=== PATIENT | male | born 1960 | race Caucasian/White ===

== ENCOUNTER → 2020-04-05 | Outpatient (CLI) | payer SELFPAY ==
[~2020-04-05] MED LIST: CPR500T PO
== END ==
LOC: LAB 10:59
PROVIDERS: ATTEND Nurse Practitioner
DX: L03.031 Cellulitis of right toe (principal)
CPT/HCPCS: 87040

== ENCOUNTER → 2021-03-05 | Outpatient (CLI) | payer MEDICARE, MEDICAID | LOC: CARD 14:30 | PROVIDERS: ATTEND Internal Medicine Cardiovascular Disease | DX: I51.7 Cardiomegaly (principal); I34.0 Nonrheumatic mitral (valve) insufficiency | CPT/HCPCS: 93306 ==

== ENCOUNTER → 2021-03-07 | Outpatient (CLI) | payer MEDICARE, MEDICAID ==
[~2021-03-07] VITALS: Ht 183 cm; Wt 80.0 kg
[~2021-03-07] MED LIST changes: +CATHETER FLUSH 10 ML SYR IV PRN; +REGADENOSON 0.4 MG/5 ML SYR (LEXISCAN) IV ONE
[2021-03-07 09:17] VITALS: BP 154/71
--- NOTE | 2021-03-07 12:08 | NUCLEAR STRESS TEST ---
REGADENOSON NUCLEAR STRESS Date of procedure: 03/07/2021. Primary care provider: [facility] Admitting physician: Erick Woody Jr., MD. INDICATION: Abnormal electrocardiogram. BASELINE ELECTROCARDIOGRAM: Sinus rhythm with possible old septal myocardial infarction and anterior T wave changes, consider ischemia. STRESS TEST PROCEDURE: This was initially intended to be a treadmill nuclear stress test but the patient could not attain his target heart rate. This was t hen changed over to a pharmacologic nuclear stress test. The patient was administered 0.4 mg of intravenous Regadenoson. The resting heart rate was 60 bpm and the peak heart rate was 71 bpm. The resting blood pressure was 158/76 mmHg and the minimum blood pressure was 138/70 mmHg. This represents a normal heart rate and a normal blood pressure response to Regadenoson. The test was stopped due to the protocol. There was no chest discomfort during the test. There were no arrhythmias during the test. There were no significant stress induced electrocardiogram changes. NUCLEAR PROCEDURE: The patient was administered 10.8 mCi of intravenous technetium 99m Tetrofosmin at rest for the rest images. The patient was subsequently administered 30.8 mCi of intravenous technetium 99m Tetrofosmin at peak stress for the stress images. Following an appropriate wait after each injection, imaging was obtained. The images were subsequently processed and reformatted in the usual views. Gated imaging was obtained. The image quality was adequate with a mild degree of gastrointestinal attenuation artifact. CT attenuation correction was used as a adjunct to standard imaging. Both the corrected and uncorrected images were reviewed for interpretation. NUCLEAR RESULTS: There was a large, severe intensity, mid to distal anterior, apical and septal defect with no evidence of inducible ischemia. The left ventricle was dilated with an end-diastolic volume of 181 mL and an end-systolic volume of 106 mL. There was no evidence of transient ischemic dilatation. The TID ratio was 1.08. There was mid to distal anterior and apical hypokinesis with a calculated ejection fraction of 41%. IMPRESSION: 1. Normal heart rate and blood pressure response to regadenoson. 2. There was no chest discomfort, arrhythmias, or electrocardiogram changes during the test. 3. The left ventricle was dilated. 4. There was a large, severe intensity, mid to distal anterior, apical and septal defect with no evidence of inducible ischemia. 5. There was mid to distal anterior and apical hypokinesis with a calculated ejection fraction of 41%. 6. This is an abnormal result representing an overall high risk for possible future ischemic events due to the combination of the large extent of the perfusion defect coupled with the low ejection fraction. On the other hand, there is no evidence of ischemia on this study. Certain portions of this document may have been dictated utilizing voice recognition technology. Inherent to this technology, typographical and grammatical errors may exist. As much as I am diligent to identify and correct these mistakes, some errors may remain in the document. ERICK WOODY JR, MD Mar 07, 2021 12:08
== END ==
LOC: CARD 08:15
PROVIDERS: ATTEND Internal Medicine Cardiovascular Disease
DX: R94.31 Abnormal electrocardiogram [ECG] [EKG] (principal)
CPT/HCPCS: 78452; 93017; A9502

== ENCOUNTER → 2021-03-18 | Outpatient (CLI) | payer MEDICARE, MEDICAID ==
[~2021-03-18] MED LIST changes: +AMLO-251 PO; +ASPI-999 PO; +ATOR40TA70 PO; +CALC-250 PO; +CALC0.253 PO; +CALC667T5 PO; +CARV25TA PO; -CATHETER FLUSH 10 ML SYR IV PRN; +CLON1PAT34 TD; +CYAN100015 SL; +ESOM20TA PO; +FURO80TA3 PO; +HYDR100T27 PO; +ISOS60TA63 PO; -REGADENOSON 0.4 MG/5 ML SYR (LEXISCAN) IV ONE; +[UNRECOGNIZED DRUG - CODE] PO
[2021-03-18 08:16] LABS: EOSINOPHILS # (AUTO) 0.2 10^3/uL (0.0-0.3); EOSINOPHILS % (AUTO) 4 % (0-10); HEMATOCRIT 26 % (40-54); MEAN CORPUSCULAR VOLUME 91 fL (80-99); MONOCYTES # (AUTO) 0.4 10^3/uL (0.0-1.0)
[2021-03-18 08:18] LABS: BASOPHILS % (AUTO) 0 % (0-10); HEMOGLOBIN 9.3 g/dL (13.3-17.7); LYMPHOCYTES # (AUTO) 0.7 10^3/uL (1.0-4.0); LYMPHOCYTES % (AUTO) 14 % (12-44); MEAN CORPUSCULAR HEMOGLOBIN 32 pg (25-34); MEAN CORPUSCULAR HGB CONC 35 g/dL (32-36); MONOCYTES % (AUTO) 8 % (0-12); NEUTROPHILS # (AUTO) 3.7 10^3/uL (1.8-7.8); NEUTROPHILS % (AUTO) 74 % (42-75); PLATELET COUNT 86 10^3/uL (130-400)
[2021-03-18 08:40] LABS: CALCIUM 9.9 MG/DL (8.5-10.1); CREATININE SERUM 8.1 MG/DL (0.60-1.30); POTASSIUM 3.9 MMOL/L (3.6-5.0)
== END ==
LOC: LAB
PROVIDERS: ATTEND Internal Medicine Cardiovascular Disease
DX: R94.39 Abnormal result of other cardiovascular function study (principal)
CPT/HCPCS: 36415; 80048; 85025; 85610

== ENCOUNTER 2021-03-21 10:00 | Day surgery (SDC) | payer MEDICARE, MEDICAID ==
[~2021-03-21] VITALS: Ht 182.9 cm; Wt 78.9 kg
[2021-03-21] VITALS (24 sets, daily range): BP systolic 115–156; BP diastolic 51–81
--- OUTSIDE RECORDS SUMMARY | 2021-03-21 08:01 | XMS REPORT | Clinical Summary ---
Author Author [facility] Organization [facility] Address Unknown Phone Unavailable Care Team Providers Care Nursing Home Assistant Administrator Name Role Phone PCP Unavailable Allergies Not on File Medications Not on file Active Problems Not on file Social History Date Tobacco Use Types Packs/Day Years Used Never Assessed Sex Assigned at Date Recorded Not on file Last Filed Vital Signs Not on file Plan of Treatment Health Maintenance Due Date Last Done Comments Hepatitis C Screen 1960 Medicare Annual Wellness 1960 Td/Tdap# 1960 COVID-19 Vaccine (1) 1967 Colorectal Screening via 2012 Colonoscopy Zoster Vaccine# (1 of 2) 2012 Influenza Vaccine (#1) 2021 Pneumococcal Vaccine: Aged Out No longer eligib le based on patient's age to Pediatrics (0 to 5 Years) complete this topic and At-Risk Patients (6 to 64 Years) Results Not on filefrom Last 3 Months Insurance Type Payer Benefit Subscriber ID Effective Phone Address Plan / Dates Group Medicare MEDICARE MEDICARE [id number] 2020-P [phone] [employer] PART A B resent ATTN CLAIMS DEPT [address] [place] [address] Indemnity [employer] [id number] 2020- [address] [place] [address] MEDICAID MANAGED CARE [facility] [id number] 2020-P [address] COMM[place]ITY resent [id number] [place] [address]
--- NOTE | 2021-03-21 09:47 | Pre-Op Note & Conscious Sedat ---
Pre-Operative Progress Note H&P Reviewed The H&P was reviewed, patient examined and no changes noted. Date H&P Reviewed: Mar 21, 2021 Time H&P Reviewed: 09:47 Pre-Op Diagnosis: Abnormal nuclear stress test. Conscious Sedation Pre-Proced ASA Score 3 For ASA 3 and 4: Consider anesthesia and medical clearance. Also, for patients with a history of failed moderate sedation consider anesthesia. Airway Lungs Heart ASA score ASA 1: a normal healthy patient ASA 2: a patient with a mild systemic disease (mid diabetes, controlled hypertension, obesity ASA 3: a patient with a severe systemic disease that limits activity (angina, COPD, prior Myocardial infarction) ASA 4: a patient with an incapacitating disease that is a constant threat to life (CHF, renal failure) ASA 5: a moribund patient not expected to survive 24 hrs. (ruptured aneurysm) ASA 6: a declared brain- patient whose organs are being harvested. For emergent operations, add the letter E after the classification Mallampati Classification Grade 2 Sedation Plan Analgesia, Amnesia, Plan communicated to team members, Discussed options with patient/fam, Discussed risks with patient/fam The patient is an appropriate candidate to undergo the planned procedure, sedation, and anesthesia. The patient immediately re-assessed prior to indication. BERNABE PIKE JR, MD Mar 21, 2021 09:47
[~2021-03-21 10:00] MED LIST changes: -ASPI-999 PO; +ASPIRIN 81 MG CHEW (CHILDREN'S ASA) PO ONE; +CATHETER FLUSH 10 ML SYR IV PRN; +HEParin (CATH LAB) 2,000 ML IV ONE; +HEParin 1000 UNIT/ML (10ML VIAL) FOR BOLUS ONE; -ISOS60TA63 PO; +LIDOCAINE 1% INJ 20 ML 20 ML VIAL ONE; +MIDAZOLAM 5 MG/5 ML (VERSED) VIAL ONE; +NITRO DRIP 25000 MCG/D5W 250 ML IV ONE; +NS IV 1000 ML 1,000 ML IV ONE; +NS IV 1000 ML 1,000 ML ONE; +VERAPAMIL 5 MG/2 ML (CALAN) VIAL IV ONE; +diphenhydrAMINE 50 MG/ML INJ (BENADRYL) ONE; +fentaNYL INJ 100 MCG/2 ML AMP ONE; +methylPREDNISolone 125 MG (Solu-MEDROL) VIAL ONE
[2021-03-21] MEDS ORDERED: ONDANSETRON 4 MG/2 ML (SDV) Z0FRAN ONE (10:38)
[2021-03-21] MEDS ORDERED: PATIENT MAY USE OWN MEDS, ALL PO SCH (10:45)
[2021-03-21] MEDS ORDERED: NS IV 1000 ML 1,000 ML IV SCH (10:45)
[2021-03-21] MEDS ORDERED: ISOS60TA63 PO (10:47)
--- NOTE | 2021-03-21 11:04 | Cardiac Cath Report ---
CARDIAC CATHETERIZATION DATE OF PROCEDURE: 03/21/2021 INDICATION: Abnormal nuclear stress test and cardiomyopathy. HISTORY: The patient is a 61 year old male with no previously known history of coronary artery disease. I saw him in the office due to progressive dyspnea on exertion. I had him undergo a nuclear stress test on 03/07/2021 that showed a large fixed mid to distal anterior, apical and septal defect with no ischemia. The ejection fraction was 41%. This is considered a high risk result. As such, he is now referred for further evaluation with a cardiac catheterization. PROCEDURES PERFORMED: 1. Left heart catheterization with hemodynamic measurements. 2. Diagnostic [place] coronary angiography. PROCEDURE DESCRIPTION: After informed consent and in the fasting state, left heart catheterization was performed through the right radial artery utilizing a 6 Montserratian system by percutaneous approach. Standard 5 Montserratian Eric catheters were utilized for the diagnostic portion of the procedure. All catheters were exchanged over a guidewire. Following the procedure, a vascular band was applied to the radial artery access site and the sheath was removed with good hemostasis. RESULTS: HEMODYNAMICS: The aortic pressure was 142/64 mmHg. The left ventricular pressure was 148/0 mmHg with a left ventricular end-diastolic pressure of 25 mmHg. There was no significant pressure gradient upon pullback across the aortic valve. CORONARY ANGIOGRAPHY: Left main coronary artery: Short and free of significant disease. Left anterior descending coronary artery: There was a 30% stenosis in the proximal segment. There was a 99% stenosis in the mid segment with TANIA-2 flow. The distal portion of the vessel was diffusely diseased up to 70% stenotic but the apical portion of the vessel was relatively spared. There were 3 small diagonal branches which were diffusely diseased. These were approximately 2 mm vessels. Left circumflex coronary artery: There was a 30% stenosis proximally. There was a large bifurcating first obtuse marginal branch which contained a 70% stenosis proximally followed by an 80% stenosis in the midportion of the vessel just distal to to the bifurcation. There was TANIA-3 flow. Right coronary artery: Dominant and there were 3 sequential 70% stenoses in the proximal, mid and distal segments with TANIA-2 flow. The posterior descending artery and posterolateral branches were small and diffusely diseased but without significant focal critical stenoses. IMPRESSION: 1. Systemic hypertension with elevated left ventricular end-diastolic pressure. 2. Severe [place] three-vessel coronary artery disease as outlined above. The left main coronary artery is spared. 3. The patient has mild left ventricular systolic dysfunction with a calculated ejection fraction 41% by his nuclear stress test performed on 03/07/2021. However, he also had an echocardiogram on 03/05/2021 that showed an estimated ejection fraction of 55-60% with mild mitral regurgitation. 4. The patient will be referred to a cardiovascular surgeon for consideration of coronary artery bypass surgery. Certain portions of this document may have been dictated utilizing voice recognition technology. Inherent to this technology, typographical and grammatical errors may exist. As much as I am diligent to identify and correct these mistakes, some errors may remain in the document. BERNABE PIKE JR, MD Mar 21, 2021 11:04
[2021-03-21] MEDS ORDERED: ASPI-999 PO (13:38)
== END 2021-03-21 17:50 ==
LOC: CATH 10:00 → CSD 11:05 → CATH 17:50
PROVIDERS: ATTEND Internal Medicine Cardiovascular Disease
DX: I42.9 Cardiomyopathy, unspecified (principal); I25.10 Atherosclerotic heart disease of native coronary artery without angina pectoris; E78.5 Hyperlipidemia, unspecified; E11.40 Type 2 diabetes mellitus with diabetic neuropathy, unspecified; D64.9 Anemia, unspecified; I13.11 Hypertensive heart and chronic kidney disease without heart failure, with stage 5 chronic kidney disease, or end stage renal disease; E11.22 Type 2 diabetes mellitus with diabetic chronic kidney disease; N18.5 Chronic kidney disease, stage 5; Z99.2 Dependence on renal dialysis; Z79.899 Other long term (current) drug therapy
CPT/HCPCS: 93458; C1894

== ENCOUNTER 2021-03-27 07:54 | Emergency (ER) | payer MEDICARE, MEDICAID ==
[~2021-03-27] VITALS: Ht 182 cm; Wt 90.7 kg
[~2021-03-27 07:54] MED LIST changes: -DOXY100C5 PO; -ONDA4TAB11 SL
--- OUTSIDE RECORDS SUMMARY | 2021-03-27 07:59 | XMS REPORT | Clinical Summary ---
Author Author [facility] Organization [facility] Address Unknown Phone Unavailable Care Team Providers Care Checker Loader Name Role Phone PCP Unavailable Allergies Not [...] Plan / Dates Group Medicare MEDICARE MEDICARE [id number] 2020-P [phone] [employer] PART A B resent ATTN CLAIMS DEPT [address] [place] [address] Indemnity [employer] [id number] 2020- [address] [facility] [place] [address] MEDICAID MANAGED CARE [facility] [id number] 2020-P [address] COMM[place]ITY resent [id number] [place] [address]
[2021-03-27 08:05] VITALS: BP 162/80
--- NOTE | 2021-03-27 09:22 | ED EENT ---
History of Present Illness General Chief Complaint: Dental Problems/Pain Stated Complaint: ABCESS TOOTH,N/V, LOSS OF APPETITE Nursing Triage Note: ARRIVED VIA AMB TO ROOM 07 WITH COMPLAINTS OF DENTAL ABSCESS THAT IS DRAINING. STATES HIS BLOOD SUGAR HAS BEEN HIGH. Source: patient Exam Limitations: no limitations History of Present Illness Date Seen by Provider: Mar 27, 2021 Time Seen by Provider: 09:13 Initial Comments This 61-year-old gentleman presents to the emergency room with complaints of dental decay on a left lower posterior molar with drainage of purulent foul taste vague fluid. This is causing loss of appetite and vomiting. He denies any fever. He reports blood sugars have been escalating and he was started on insulin therapy on Thursday. The dental abscess has been draining for about 2 w eeks. Patient is on peritoneal dialysis. He feels like he has been diuresing recently due to his high blood sugars. He has not yet seen a dentist for this problem. Allergies and Home Medications Allergies Coded Allergies: No Known Drug Allergies (Unverified , 12/11/11) Patient Home Medication List Home Medication List Reviewed: Yes Amlodipine Besylate (Amlodipine Besylate) 10 Mg Tablet, 10 MG PO DAILY, (Reported) Entered as Reported by: CARITO HARTMANN on 03/21/21928 Aspirin (Aspirin) 81 Mg Tab.chew, 81 MG PO DAILY Prescribed by: BERNABE PIKE JR, MD on 03/21/21 133 Atorvastatin Calcium (Atorvastatin Calcium) 40 Mg Tablet, 40 MG PO DAILY, (Reported) Entered as Reported by: CARITO HARTMANN on 03/21/21928 Calcitriol (Calcitriol) 0.25 Mcg Capsule, 0.25 MCG PO HS, (Reported) Entered as Reported by: CARITO HARTMANN on 03/21/21928 Calcium Acetate (Calcium Acetate) 667 Mg Tablet, 1,334 MG PO TID, (Reported) Entered as Reported by: CARITO HARTMANN on 03/21/21928 Carvedilol (Carvedilol) 25 Mg Tablet, 25 MG PO BID, (Reported) Entered as Reported by: CARITO HARTMANN on 03/21/21928 Cholecalciferol (Vitamin D3) (Vitamin D3) 125 Mcg Tablet, 125 MCG PO DAILY, (Reported) Entered as Reported by: CARITO HARTMANN on 03/21/21928 Clonidine (Clonidine TTS 2 Patch) 1 Each Patch.tdwk, 1 PATCH TD SUN, (Reported) Entered as Reported by: CARITO HARTMANN on 03/21/21928 Cyanocobalamin (Vitamin B-12) (Vitamin B-12) 1,000 Mcg Tab.subl, 1,000 MCG SL DAILY, (Reported) Entered as Reported by: CARITO HARTMANN on 03/21/21928 Doxycycline Hyclate (Doxycycline Hyclate) 100 Mg Capsule, 100 MG PO BID Prescribed by: CHOLO EDGAR on 03/27/21925 Esomeprazole Magnesium (Nexium 24Hr) 20 Mg Tablet.dr, 20 MG PO DAILY, (Reported) Entered as Reported by: CARITO HARTMANN on 03/21/21928 Folic Acid/Vitamin B Comp W-C (Dialyvite 800 Tablet) 0.8 Mg Tablet, 0.8 MG PO HS, (Reported) Entered as Reported by: CARITO HARTMANN on 03/21/21928 Furosemide (Furosemide) 80 Mg Tablet, 80 MG PO DAILY, (Reported) Entered as Reported by: CARITO HARTMANN on 03/21/21928 Hydralazine HCl (Hydralazine HCl) 100 Mg Tablet, 100 MG PO BID, (Reported) Entered as Reported by: CARITO HARTMANN on 03/21/21928 Isosorbide Mononitrate (Isosorbide Mononitrate ER) 60 Mg Tab, 60 MG PO DAILY Prescribed by: BERNABE PIKE JR, MD on 03/21/21 1047 Ondansetron (Ondansetron Odt) 4 Mg Tab.rapdis, 4 MG SL Q4H PRN for NAUS EA/VOMITING Prescribed by: CHOLO EDGAR on 03/27/21925 Discontinued Medications Ciprofloxacin (Cipro) 500 Mg Tablet, 1 TAB PO BID Discontinued Reason: No Longer Taking Prescribed by: ARMANI CANTOR on 12/11/11 1612 Review of Systems Review of Systems Constitutional: no symptoms reported Eyes: No Symptoms Reported Ears: No Symptoms Reported Nose: no symptoms reported Mouth: see HPI Throat: no symptoms reported Respiratory: no symptoms reported Cardiovascular: no symptoms reported Gastrointestinal: see HPI Musculoskeletal: no symptoms reported Skin: no symptoms reported Neurological: No Symptoms Reported Hematologic/Lymphatic: No Symptoms Reported Immunological/Allergic: no symptoms reported Past Qobqkpu-Kfhuqy-Huyurh Hx Patient Social History Smoking Status: Never a Smoker Substance use?: No Alcohol Use?: No Past Medical History Surgeries: Yes (Peritoneal dialysis drain) Respiratory: No Cardiac: Yes Coronary Artery Disease, Heart Attack, Heart Murmur, Hypertension Neurological: No Genitourinary: Yes Renal Failure, Dialysis (Peritoneal) Gastrointestinal: Yes Gastroesophageal Reflux Musculoskeletal: No Endocrine: Yes Diabetes, Insulin dep HEENT: Yes (Very poor dentition) Cancer: No Skin Psychosocial: No Integumentary: No Physical Exam Vital Signs Vital Signs - First Documented 03/27/21 08:05 Temp 37.0 Pulse 53 Resp 16 B/P (MAP) 162/80 (107) Pulse Ox 97 O2 Delivery Room Air Height, Weight, BMI Height: '" Weight: lbs. oz. kg; 27.00 BMI Method:Stated General Appearance: WD/WN, no apparent distress Eyes: bilateral eye normal inspection, bilateral eye PERRL, bilateral eye EOMI Ears: bilateral ear auricle normal, bilateral ear canal normal, bilateral ear TM normal Nose: normal inspection Mouth/Throat: dental tenderness, other (Poor dentition with some missing teeth and a deep caries at the medial aspect of the left lower posterior molar. No overt abscess identified) Neck: non-tender, normal inspection; No lymphadenopathy (R), No lymphadenopathy (L) Cardiovascular: regular rate, rhythm, no edema, no murmur Respiratory: lungs clear, normal breath sounds, no respiratory distress Neurologic/Psychiatric: alert, normal mood/affect, oriented x 3 Skin: normal color, warm/dry Progress/Results/Core Measures Results/Orders Lab Results Laboratory Tests Test 03/27/21 08:09 Range/Units Glucometer 330 H 70-110 MG/DL My Orders Orders - CHOLO GALLAGHER MD Ondansetron Oral Dissolve Tab (Zofran (03/27/21 09:30) Vital Signs/I&O Blood Pressure Mean: 107 FSBG Bedside Testing Finger Stick Blood Glucose: 330 Blood Glucose Action Taken: RN AND PHYSICIAN NOTIFIED Progress Progress Note : Progress Note Patient was treated with Zofran. Prescriptions for antibiotics and Zofran were provided. Doxycycline was selected due to no need for renal dosing. Departure Impression Primary Impression: Dental abscess Additional Impressions: Hyperglycemia Nausea & vomiting Qualified Codes: R11.2 - Nausea with vomiting, unspecified Disposition: 01 HOME, SELF-CARE Condition: Stable Departure-Patient Inst. Decision time for Depature: 09:23 [facility]errals: [facility] Primary Care Physician LULU ARIZMENDI APRN (Family) Primary Care Physician Patient Instructions: Tooth Abscess ED Add. Discharge Instructions: Start your antibiotics and complete the entire course. You must see a dentist as soon as possible as you will likely need extraction or other intervention to resolve your abscess. Monitor your blood sugars closely and work with your insulin prescriber to adjust dosing as necessary. You may use Tylenol (acetaminophen) up to 1000 mg every 6 hours as needed for pain. Use the Zofran as prescribed for nausea and vomiting. Call with questions or concerns. Return to the ER if you have worsening symptoms. All discharge instructions reviewed with patient and/or family. Voiced understanding. Scripts Ondansetron (Ondansetron Odt) 4 Mg Tab.rapdis 4 MG SL Q4H PRN for NAUSEA/VOMITING, #10 TAB Prov: CHOLO GALLAGHER MD 03/27/21 Doxycycline Hyclate (Doxycycline Hyclate) 100 Mg Capsule 100 MG PO BID, #20 CAP Prov: CHOLO GALLAGHER MD 03/27/21 Copy Copies To 1: SIMÓN BALLESTEROS JOSHUA T MD Mar 27, 2021 09:22
[2021-03-27] MEDS ORDERED: DOXY100C5 PO (09:26)
[2021-03-27] MEDS ORDERED: ONDA4TAB11 SL (09:26)
[2021-03-27] MEDS ORDERED: ONDANSETRON 4 MG (ZOFRAN) ORAL DISSOLVE TAB PO ONE (09:30)
== END 2021-03-27 09:40 | disposition home or self-care (01) ==
LOC: EDUNIT# 07:54 → ER 07:56
DX: K04.7 Periapical abscess without sinus (principal); E11.65 Type 2 diabetes mellitus with hyperglycemia; R11.2 Nausea with vomiting, unspecified; I25.2 Old myocardial infarction; I10 Essential (primary) hypertension; K21.9 Gastro-esophageal reflux disease without esophagitis; I25.10 Atherosclerotic heart disease of native coronary artery without angina pectoris; Z79.899 Other long term (current) drug therapy; Z79.82 Long term (current) use of aspirin
CPT/HCPCS: 82947

== ENCOUNTER → 2021-03-27 | Outpatient (CLI) | payer MEDICARE, MEDICAID ==
[~2021-03-27] MED LIST changes: +ASPI-999 PO; -ASPIRIN 81 MG CHEW (CHILDREN'S ASA) PO ONE; -CATHETER FLUSH 10 ML SYR IV PRN; +DOXY100C5 PO; -HEParin (CATH LAB) 2,000 ML IV ONE; -HEParin 1000 UNIT/ML (10ML VIAL) FOR BOLUS ONE; +ISOS60TA63 PO; -LIDOCAINE 1% INJ 20 ML 20 ML VIAL ONE; -MIDAZOLAM 5 MG/5 ML (VERSED) VIAL ONE; -NITRO DRIP 25000 MCG/D5W 250 ML IV ONE; -NS IV 1000 ML 1,000 ML IV ONE; -NS IV 1000 ML 1,000 ML ONE; +ONDA4TAB11 SL; -VERAPAMIL 5 MG/2 ML (CALAN) VIAL IV ONE; -diphenhydrAMINE 50 MG/ML INJ (BENADRYL) ONE; -fentaNYL INJ 100 MCG/2 ML AMP ONE; -methylPREDNISolone 125 MG (Solu-MEDROL) VIAL ONE
--- NOTE | 2021-03-28 15:28 | Cardiac Procedure Note ---
Cardiology Procedures Date of Procedure THALLIUM VIABILITY STUDY Date of procedure: 03/27/2021-03/28/2021 Indication: Coronary artery disease with angina pectoris. PROCEDURE: On day 1, the patient was administered 3.1 mCi of thallium-201 for baseline imaging. On day 2, the patient was administered 1.1 mCi of thallium-201 for redistribution imaging. Following appropriate weight after each injection, imaging was obtained. The images were subsequently processed and reformatted in the usual views. RESULTS: At rest, there was a large mid to distal anterior, septal and apical perfusion defect. The remaining segments had normal perfusion. During recent distribution imaging all segments except for the distal anterior and apical segments had good perfusion. The only segments with no viability appear to be the distal anterior and apical segments. IMPRESSION: 1. This is a thallium viability study. 2. All myocardial segments other than the distal anterior and apical segments have good viability. Certain portions of this document may have been dictated utilizing voice recognition technology. Inherent to this technology, typographical and grammatical errors may exist. As much as I am diligent to identify and correct these mistakes, some errors may remain in the document. BERNABE PIKE JR, MD Mar 28, 2021 15:28
== END ==
LOC: CARD 10:00
PROVIDERS: ATTEND Internal Medicine Cardiovascular Disease
DX: I25.119 Atherosclerotic heart disease of native coronary artery with unspecified angina pectoris (principal)
CPT/HCPCS: 78452; 93017; A9505

== ENCOUNTER → 2021-08-29 | Outpatient (CLI) | payer MEDICARE, MEDICAID ==
[~2021-08-29] VITALS: Ht 182.8 cm; Wt 86.0 kg
[~2021-08-29] MED LIST changes: +DOXY100C5 PO; +ONDA4TAB11 SL
== END | disposition home or self-care (01) ==
LOC: PREOP 06:58
PROVIDERS: ATTEND Specialist
DX: Z01.818 Encounter for other preprocedural examination (principal)

== ENCOUNTER 2021-09-06 07:36 | Day surgery (SDC) | payer MEDICARE, MEDICAID ==
[~2021-09-06] VITALS: Ht 182.8 cm; Wt 86.0 kg
[2021-09-06] MEDS: TETRACAINE 0.5% OPHTH SOLN 4 ML BTL (SINGLE DOSE ONLY) OU PRN ×4 (07:58→08:19)
[2021-09-06] MEDS ORDERED: LIDOCAINE PF 1% 2 ML VIAL IR PRN (08:00)
[2021-09-06] MEDS ORDERED: TIMOLOL MALEATE 0.5% 5 ML (TIMOPTIC) BTL OU PRN (08:00)
[2021-09-06] MEDS ORDERED: POVIDONE (BETADINE) OPHTH SOLN 5% 30 ML OP ONE (08:00)
[2021-09-06] MEDS ORDERED: MOXIFLOXACIN OPHTH SOLN 5 MG/ML 0.3 ML SYRINGE OP ONE (08:00)
[2021-09-06] MEDS: PHENYLEPHRINE 10% OPHTH (NEO-SYN) 5 ML BTL OU SCH ×3 (08:08→08:19)
[2021-09-06] MEDS: TROPICAMIDE 1% OPH SOLN (MYDRIACYL) 15 ML BTL OP SCH ×3 (08:09→08:19)
[2021-09-06 08:14] VITALS: BP 68/46
[2021-09-06] MEDS ORDERED: DEXTROSE 50% 50 ML (IMS) SYR ONE (08:36)
[2021-09-06] MEDS ORDERED: DEXTROSE 50% 50 ML (IMS) SYR IV ONE (08:45)
[2021-09-06] MEDS ORDERED: ONDANSETRON 4 MG/2 ML (SDV) Z0FRAN ONE (09:06)
[2021-09-06] MEDS ORDERED: MIDAZOLAM 2 MG/2 ML (VERSED) VIAL ONE (09:06)
--- NOTE | 2021-09-06 09:39 | Ophthalmologist Pre-Op Note ---
Pre-Operative Progress Note H&P Reviewed The H&P was reviewed, patient examined and no changes noted. Date H&P Reviewed: Sep 06, 2021 Time H&P Reviewed: 10:22 Pre-Op Dx Cataract, Right Eye DWAIN PEDRAZA MD Sep 06, 2021 09:39
--- NOTE | 2021-09-06 09:40 | Ophthalmology Operative Report ---
Cataract removal/placement IOL PREOPERATIVE DIAGNOSIS: Cataract Right Eye POSTOPERATIVE DIAGNOSIS: Cataract Right Eye PROCEDURE: Cataract removal and placement of posterior chamber implant, right eye SURGEON: Dharmesh Pedraza ANESTHESIA: Topical with sedation COMPLICATIONS: None ESTIMATED BLOOD LOSS: Minimal DESCRIPTION OF PROCEDURE: After proper informed consent was obtained, the patient, a 61 male, was taken to the Operating Room and the right eye was anesthetized with tetracaine. The right eye was then prepped and draped in the usual manner. A wire lid speculum was placed. A paracentesis was made at the left hand position. Preservative free lidocaine was injected into the anterior chamber followed by viscoelastic. A clear corneal incision was made in the temporal position. A capsulorrhexis was preformed and the central nuclear and cortical material were removed. The posterior capsule was polished and Artemio 18.5 [id number] IOL was placed into the capsular bag. The residual viscoelastic was aspirated and balanced saline solution was injected into the anterior chamber. Moxifloxacin was injected into the anterior chamber. The wound was checked and found to be water tight. The patient tolerated the procedure well without complications. DHARMESH PEDRAZA MD Sep 06, 2021 09:40
[2021-09-06 09:58] VITALS: BP 102/65
[2021-09-06] MEDS ORDERED: acetaZOLAMIDE ER 500 MG CAP (DIAMOX SEQUELS) PO ONE (10:15)
== END 2021-09-06 10:00 | disposition home or self-care (01) ==
LOC: SDC 07:36
PROVIDERS: ATTEND Specialist
DX: E11.36 Type 2 diabetes mellitus with diabetic cataract (principal); H25.9 Unspecified age-related cataract; Z79.82 Long term (current) use of aspirin
CPT/HCPCS: 66984; 82947; V2632

== ENCOUNTER 2021-09-20 07:29 | Day surgery (SDC) | payer MEDICARE, MEDICAID ==
--- NOTE | 2021-09-16 07:17 | Anesthesia-General Post-Op ---
MAC Significant Intra-Op Events Notes late entry 6-3-22 at 0845 Post Op Complications Complications None Follow Up Care/Instructions Patient Instructions None needed. Anesthesiology Discharge Order Discharge Order Patient is doing well, no complaints, stable vital signs, no apparent adverse anesthesia problems. No complications reported per nursing. LUCERO CHOWDHURY CRNA Sep 16, 2021 07:17
[~2021-09-20] VITALS: Ht 182.9 cm; Wt 86.0 kg
[2021-09-20] MEDS ORDERED: MOXIFLOXACIN OPHTH SOLN 5 MG/ML 0.3 ML SYRINGE OP ONE (07:30)
[2021-09-20] MEDS ORDERED: LIDOCAINE PF 1% 2 ML VIAL IR PRN (07:30)
[2021-09-20] MEDS ORDERED: TIMOLOL MALEATE 0.5% 5 ML (TIMOPTIC) BTL OU PRN (07:30)
[2021-09-20] MEDS ORDERED: POVIDONE (BETADINE) OPHTH SOLN 5% 30 ML OP ONE (07:30)
[2021-09-20] MEDS: TETRACAINE 0.5% OPHTH SOLN 4 ML BTL (SINGLE DOSE ONLY) OU PRN ×4 (07:42→08:05)
[2021-09-20 07:45] VITALS: BP 121/71
[2021-09-20] MEDS: PHENYLEPHRINE 10% OPHTH (NEO-SYN) 5 ML BTL OU SCH ×3 (07:50→08:06)
[2021-09-20] MEDS: TROPICAMIDE 1% OPH SOLN (MYDRIACYL) 15 ML BTL OP SCH ×3 (07:50→08:06)
--- NOTE | 2021-09-20 08:18 | Ophthalmologist Pre-Op Note ---
Pre-Operative Progress Note H&P Reviewed The H&P was reviewed, patient examined and no changes noted. Date H&P Reviewed: Sep 20, 2021 Time H&P Reviewed: 08:17 Pre-Op Dx Cataract, Left Eye DWAIN PEDRAZA MD Sep 20, 2021 08:18
[2021-09-20] MEDS ORDERED: MIDAZOLAM 2 MG/2 ML (VERSED) VIAL ONE (08:27)
[2021-09-20] MEDS ORDERED: acetaZOLAMIDE ER 500 MG CAP (DIAMOX SEQUELS) PO ONE (08:30)
[2021-09-20] MEDS ORDERED: LIDOCAINE PF 2% 5 ML (XYLOCAINE) VIAL ONE (08:39)
--- NOTE | 2021-09-20 08:45 | Ophthalmology Operative Report ---
Cataract removal/placement IOL PREOPERATIVE DIAGNOSIS: Cataract Left Eye POSTOPERATIVE DIAGNOSIS: Cataract Left Eye PROCEDURE: Cataract removal and placement of posterior chamber implant, left eye SURGEON: Dharmesh Pedraza ANESTHESIA: Topical with sedation COMPLICATIONS: None ESTIMATED BLOOD LOSS: Minimal DESCRIPTION OF PROCEDURE: After proper informed consent was obtained, the patient, a 61 male, was taken to the Operating Room and the left eye was anesthetized with tetracaine. The left eye was then prepped and draped in the usual manner. A wire lid speculum was placed. A paracentesis was made at the left hand position. Preservative free lidocaine was injected into the anterior chamber followed by viscoelastic. A clear corneal incision was made in the temporal position. A capsulorrhexis was preformed and the central nuclear and cortical material were removed. The posterior capsule was polished and an Artemio 18.0 AU00T0 was placed into the capsular bag. The residual viscoelastic was aspirated and balanced saline solution was injected into the anterior chamber. Moxifloxacin was injected into the anterior chamber. The wound was checked and found to be water tight. The patient tolerated the procedure well without complications. DHARMESH PEDRAZA MD Sep 20, 2021 08:45
[2021-09-20 08:53] VITALS: BP 130/66
--- NOTE | 2021-09-20 12:51 | Anesthesia-General Post-Op ---
MAC Patient Condition Mental Status/LOC: Same as Preop Cardiovascular: Satisfactory Nausea/Vomiting: Absent Respiratory: Satisfactory Pain: Controlled Complications: Absent Post Op Complications Complications None Follow Up Care/Instructions Patient Instructions None needed. Anesthesiology Discharge Order Discharge Order Patient is doing well, no complaints, stable vital signs, no apparent adverse anesthesia problems. No complications reported per nursing. CLARICE BELTRE CRNA Sep 20, 2021 12:51
== END 2021-09-20 08:54 | disposition home or self-care (01) ==
LOC: SDC 07:29
PROVIDERS: ATTEND Specialist
DX: E11.36 Type 2 diabetes mellitus with diabetic cataract (principal); H25.9 Unspecified age-related cataract; Z79.82 Long term (current) use of aspirin
CPT/HCPCS: 66984; 82947; V2632

== ENCOUNTER → 2021-09-23 | Outpatient (CLI) | payer MEDICARE, MEDICAID ==
--- NOTE | 2021-09-23 14:41 | Diagnostic Imaging Report ---
INDICATION: COUGH COMPARISON: None FINDINGS: Frontal and lateral views of the chest demonstrate normal heart size and pulmonary vascularity. The lungs are clear. There are no signs of infiltrate, pleural effusions or pneumothoraces. The visualized osseous structures show no acute abnormalities. IMPRESSION: 1. No acute process. No signs of infiltrates, effusions or pneumothoraces. Dictated by: Dictated on workstation # [id number]
== END ==
LOC: RAD 13:56
PROVIDERS: ATTEND Internal Medicine Nephrology
DX: R05.9 Cough, unspecified (principal)
CPT/HCPCS: 71046

== ENCOUNTER → 2021-11-12 | Outpatient (CLI) | payer MEDICARE, MEDICAID ==
[~2021-11-12] MED LIST changes: +RT-ALBUTEROL SULF 2.5 MG/3 ML PRE-MIX VIAL INH ONE
== END ==
LOC: RT 10:45
PROVIDERS: ATTEND Nurse Practitioner Family
DX: R05.3 Chronic cough (principal)
CPT/HCPCS: 94060; 94729

== ENCOUNTER → 2022-03-13 | Outpatient (CLI) | payer OTHER, MEDICAID ==
[~2022-03-13] MED LIST changes: -RT-ALBUTEROL SULF 2.5 MG/3 ML PRE-MIX VIAL INH ONE
--- NOTE | 2022-03-13 13:54 | Diagnostic Imaging Report ---
PROCEDURE: CT abdomen with and without contrast. TECHNIQUE: Multiple contiguous axial CT images of the abdomen were obtained prior to and after intravenous administration of iodinated contrast. Auto Exposure Controls were utilized during the CT exam to meet ALARA standards for radiation dose reduction. INDICATION: Cirrhosis and ascites. No prior studies are available for comparison. FINDINGS: The lung bases are clear. Liver demonstrates a nodular contour consistent with cirrhosis. No discrete liver mass is identified. Spleen is mildly enlarged at 14.2 cm. Gallbladder is unremarkable. There is no biliary ductal dilatation. The pancreas is unremarkable. No adrenal mass is identified. Renal vascular calcifications are noted. There appears to be a small cyst arising from the left kidney. Aorta is nonaneurysmal. No central retroperitoneal or mesenteric lymphadenopathy is seen. Bowel loops are normal in caliber. There is trace perihepatic and perisplenic ascites. IMPRESSION: 1. Features consistent with cirrhosis. There is very mild splenomegaly and very mild upper abdominal ascites. No discrete liver mass is detected. Dictated by: Dictated on workstation # [id number]
== END ==
LOC: RAD 12:43
DX: K74.60 Unspecified cirrhosis of liver (principal); R16.1 Splenomegaly, not elsewhere classified
CPT/HCPCS: 74170

== ENCOUNTER 2022-04-15 11:59 | Emergency (ER) | payer OTHER, MEDICAID ==
[~2022-04-15] VITALS: Ht 182.8 cm; Wt 86.2 kg
--- NOTE | 2022-04-15 14:20 | ED Fall/Injury ---
General Chief Complaint: Trauma-Non Activation Stated Complaint: FALL | LOWER LT SIDE PAIN Nursing Triage Note: PT TO TRIAGE WITH COMPLAINT OF FALL. STATES TWO DAYS AGO HE WAS PUTTING ON HIS SOCKS AND FELL ONTO TO LEFT SIDE. STATES PAIN HAS WORSENED AND IS HAVING DIFFICULTY WALKING. PT IS DIALYSIS PT. Source: patient (PT IS SOMEWHAT LIMITED HISTORIAN), other (SON GIVES PAST MEDICAL HISTORY) History of Present Illness Date Seen by Provider: Apr 15, 2022 Time Seen by Provider: 14:00 Initial Comments PT ARRIVES VIA POV FROM HOME WITH SON PT STATES THAT HE FELL AT HOME ON Thursday04/13/22 HE STATES HE WAS STANDING UP AND TAKING OFF HIS SOCKS AND LOST HIS BALANCE AND FELL ONTO [place] FLOOR HE STATES HE DID HIT HIS HEAD ON THE DOOR FRAME WHEN HE FELL, BUT DENIES LOSS OF CONSCIOUSNESS THE BACK OF HIS HEAD IS SORE C/O LEFT HIP PAIN AND LOWER BACK PAIN DENIES NECK PAIN DENIES NEW PARESTHESIAS OR MOTOR DEFICITS--HAS PERIPHERAL NEUROPATHY IN LOWER LEGS AND FEET AND IN HANDS DENIES LOSS OF BOWEL OR BLADDER FUNCTION NO CHEST PAIN OR SHORTNESS OF BREATH NO ABDOMINAL PAIN NO NAUSEA/VOMITING NO DIZZINESS NO VISION CHANGES THIS WAS NOT WITNESSED BY ANYONE. PT IS ON ASPIRIN AND PLAVIX. HE HAS NOT TAKEN ANYTHING FOR PAIN AT ANY TIME HE HAS NOT SOUGHT CARE UNTIL TODAY PT HAS ESRD ON PERITONEAL DIALYSIS. HE IS INSULIN DEPENDENT DIABETIC HE HAS HISTORY OF CAD WITH 3 OR 4 STENTS. 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 HE ALSO HAS AN APPOINTMENT THERE TO BE EVALUATED FOR A KIDNEY TRANSPLANT, WHILE HE IS THERE. PCP: [facility] [place] C[facility]IOLOGY: DR. ZAZUETA AT [place]. Allergies and Home Medications Allergies Coded Allergies: No Known Drug Allergies (Unverified , 12/11/11) Patient Home Medication List Amlodipine Besylate (Amlodipine Besylate) 10 Mg Tablet, 10 MG PO DAILY, (Reported) Entered as Reported by: CARITO HARTMANN on 03/21/21 09 Aspirin (Aspirin) 81 Mg Tab.chew, 81 MG PO DAILY Prescribed by: BERNABE PIKE JR, MD on 03/21/21 1338 Atorvastatin Calcium (Atorvastatin Calcium) 40 Mg Tablet, 40 MG PO DAILY, (Reported) Entered as Reported by: CARITO HARTMANN on 03/21/21928 Calcitriol (Calcitriol) 0.25 Mcg Capsule, 0.25 MCG PO HS, (Reported) Entered as Reported by: CARITO HARTMANN on 03/21/21928 Calcium Acetate (Calcium Acetate) 667 Mg Tablet, 1,334 MG PO TID, (Reported) Entered as Reported by: CARITO HARTMANN on 03/21/21928 Carvedilol (Carvedilol) 25 Mg Tablet, 25 MG PO BID, (Reported) Entered as Reported by: CARITO HARTMANN on 03/21/21928 Cholecalciferol (Vitamin D3) (Vitamin D3) 125 Mcg Tablet, 125 MCG PO DAILY, (Reported) Entered as Reported by: CARITO HARTMANN on 03/21/21928 Clonidine (Clonidine TTS 2 Patch) 1 Each Patch.tdwk, 1 PATCH TD SUN, (Reported) Entered as Reported by: CARITO HARTMANN on 03/21/21928 Cyanocobalamin (Vitamin B-12) (Vitamin B-12) 1,000 Mcg Tab.subl, 1,000 MCG SL DAILY, (Reported) Entered as Reported by: CARITO HARTMANN on 03/21/21928 Doxycycline Hyclate (Doxycycline Hyclate) 100 Mg Capsule, 100 MG PO BID Prescribed by: CHOLO EDGAR on 03/27/21925 Esomeprazole Magnesium (Nexium 24Hr) 20 Mg Tablet.dr, 20 MG PO DAILY, (Reported) Entered as Reported by: CARITO HARTMANN on 03/21/21928 Folic Acid/Vitamin B Comp W-C (Dialyvite 800 Tablet) 0.8 Mg Tablet, 0.8 MG PO HS, (Reported) Entered as Reported by: CARITO HARTMANN on 03/21/21928 Furosemide (Furosemide) 80 Mg Tablet, 80 MG PO DAILY, (Reported) Entered as Reported by: CARITO HARTMANN on 03/21/21928 Hydralazine HCl (Hydralazine HCl) 100 Mg Tablet, 100 MG PO BID, (Reported) Entered as Reported by: CARITO HARTMANN on 03/21/21928 Isosorbide Mononitrate (Isosorbide Mononitrate ER) 60 Mg Tab, 60 MG PO DAILY Prescribed by: BERNABE PIKE JR, MD on 03/21/21 1047 Ondansetron (Ondansetron Odt) 4 Mg Tab.rapdis, 4 MG SL Q4H PRN for NAUSEA/VOMITING Prescribed by: CHOLO EDGAR on 03/27/21 0926 Review of Systems Review of Systems Constitutional: no symptoms reported Ears, Nose, Mouth, Throat: no symptoms reported Respiratory: no symptoms reported Cardiovascular: no symptoms reported Gastrointestinal: no symptoms reported Musculoskeletal: see HPI Skin: no symptoms reported Psychiatric/Neurological: See HPI; Denies Headache; Pre-Existing Deficit (PERIPHERAL NEUROPATHY) Past Fdaqidz-Egusqv-Xjdppj Hx Patient Social History Tobacco Use?: Yes Tobacco type used: Cigarettes Smoking Status: Former Smoker Use of E-Cig and/or Vaping dev: No Substance use?: No Alcohol Use?: No Pt feels they are or have been: No Past Medical History Surgeries: Yes (PERITONEAL DIALYSIS PORT IN ABDOMEN) Cardiac, Coronary Stent, Dialysis Respiratory: No Cardiac: Yes Coronary Artery Disease, Heart Attack, Heart Murmur, High Cholesterol, Hypertension Neurological: Yes Neuropathy Genitourinary: Yes Renal Failure, Dialysis Gastrointestinal: Yes Gastroesophageal Reflux Musculoskeletal: No Endocrine: Yes Diabetes, Insulin dep HEENT: No Cancer: Yes Skin Did You Recieve Any Treatments: Yes What Type of Treatment Did You: Surgical Intervention Psychosocial: No Integumentary: No Blood Disorders: No Family Medical History SOCIAL HISTORY: -SMOKED UNTIL HE WAS IN HIS 40'S -DENIES ETOH -DENIES DRUG USE PAST SURGICAL HISTORY: -PERITONIAL DIALYSIS PORT IN ABDOMEN -CARDIAC CATHS WITH STENTS X 3-4 Physical Exam Vital Signs Vital Signs - First Documented 04/15/22 12:10 Temp 36.8 Pulse 72 Resp 16 B/P (MAP) 130/68 (88) Pulse Ox 98 O2 Delivery Room Air Capillary Refill : Less Than 3 Seconds Height, Weight, BMI Height: '" Weight: lbs. oz. kg; 25.00 BMI Method:Stated General Appearance: WD/WN, no apparent distress HEENT: PERRL/EOMI, other (TENDERNESS TO BACK OF HEAD, BUT NO EXTERNAL EVIDENCE OF TRAUMA) Neck: non-tender, full range of motion, supple Cardiovascular: regular rate, rhythm, no murmur Respiratory: chest non-tender, normal breath sounds, no respiratory distress, no accessory muscle use Gastrointestinal: non tender, soft, other (PERITONEAL DIALYSIS PORT IN PLACE) Back: no CVA tenderness, other (LOWER LUMBAR TENDERNESS, LEFT POSTERIOR ILIAC CREST AND LEFT BUTTOCK TENDERNESS. ) Extremities: normal capillary refill, other (LEFT HIP TENDERNESS. NO SHORTENING OR ROTATION. ) Neurologic/Psychiatric: cellar pumper II-XII nml as tested, alert, normal mood/affect, oriented x 3, other (DECREASED SENSATION TO BOTH FEET AND LOWER LEGS. --NORMAL, PER PT ) Skin: warm/dry, pallor (SALLOW. ) Progress/Results/Core Measures Results/Orders My Orders Orders - NHUNG LI DO Ct Head/Cervical Spine Wo (04/15/22 14:15) Ct Thoracic/Lumbar Spine Wo (04/15/22 14:15) Chest 1 View, Ap/Pa Only (04/15/22 14:15) Pelvis With Left Hip 2-3 Views (04/15/22 14:15) Ct Pelvis Wo (04/15/22 14:15) Vital Signs/I&O 04/15/22 12:10 Temp 36.8 Pulse 72 Resp 16 B/P (MAP) 130/68 (88) Pulse Ox 98 O2 Delivery Room Air Blood Pressure Mean: 88 Departure Impression Primary Impression: Unwitnessed fall Additional Impressions: Fall from standing Minor head injury Contusion of left hip LOW BACK STRAIN AND CONTUSION ESRD on peritoneal dialysis Disposition: 01 HOME, SELF-CARE Condition: Stable Departure-Patient Inst. Decision time for Depature: 15:15 Referrals: [facility] (PCP) Primary Care Physician LULU ARIZMENDI APRN (Family) Primary Care Physician Patient Instructions: Back Muscle Strain (DC), Contusion (DC), Hip Pain (DC), Preventing Falls ED Add. Discharge Instructions: CONTINUE YOUR REGULAR MEDICATIONS PRESCRIBED FOLLOW UP WITH YOUR DR IN 3-4 DAYS IF NO BETTER, RETURN TO ER IF YOUR SYMPTOMS WORSEN All discharge instructions reviewed with patient and/or family. Voiced understanding. Scripts Hydrocodone/Acetaminophen (Hydrocodone-Acetamin 5-325 mg) 5 Mg-325 Mg Tablet 1 EACH PO Q4-6 HOURS PRN for PAIN, #20 TAB Prov: NHUNG LI DO 04/15/22 NHUNG LI DO Apr 15, 2022 14:20
--- NOTE | 2022-04-15 14:55 | Diagnostic Imaging Report ---
PROCEDURE: CT head and CT cervical spine without contrast. TECHNIQUE: Multiple contiguous axial images were obtained through the brain and cervical spine without the use of intravenous contrast. Sagittal and coronal reformations through the cervical spine were then performed. Auto Exposure Controls were utilized during the CT exam to meet ALARA standards for radiation dose reduction. INDICATION: Trauma. Fall. Head and neck pain. COMPARISON: None. FINDINGS: CT head: No large acute territorial ischemia, mass, or hemorrhage. No midline shift or mass effect. The ventricles, cortical sulci, and basilar cisterns are patent and unremarkable. The calvarium is intact. The visualized paranasal sinuses are clear. CT cervical spine: No acute fracture or dislocation is seen in the cervical spine. No focal osseous lesions. Vertebral body heights are well-maintained. The craniocervical junction is well-maintained. Moderate degenerative changes are seen in the cervical spine with disc osteophyte complexes and uncovertebral arthropathy. Soft tissues of the neck are unremarkable. IMPRESSION: 1. No hemorrhage or focal intra-axial mass. No CT evidence of large acute territorial ischemia. 2. No acute fracture or dislocation in the cervical spine. Dictated by: Dictated on workstation # [id number]
--- NOTE | 2022-04-15 15:05 | Diagnostic Imaging Report ---
PROCEDURE: CT thoracic and lumbar spine without contrast. TECHNIQUE: Multiple contiguous axial images were obtained through the thoracic and lumbar spine without the use of intravenous contrast. Sagittal and coronal reformations were then performed. All CT scans use one or more of the following dose optimizing techniques: automated exposure control, MA and/or KvP adjustment based on a patient size and exam type, or iterative reconstruction. INDICATION: Fall. Mid and lower back pain. COMPARISON: None. FINDINGS: No acute fracture or dislocation is seen in the thoracic and lumbar spine. There is straightening of the thoracic spine. No suspicious focal osseous lesions. Degenerative changes are seen in the thoracic and lumbar spine with endplate sclerosis, disc osteophyte complexes, and facet hypertrophy. No evidence of acute spinal canal stenosis. No high-density material is seen within the spinal canal. The paraspinal soft tissues are unremarkable. Dependent opacities are seen in the lung bases. IMPRESSION: 1. No acute fracture or dislocation in the thoracic and lumbar spine. Dictated by: Dictated on workstation # [id number]
--- NOTE | 2022-04-15 15:07 | Diagnostic Imaging Report ---
CHEST 1 VIEW, AP/PA ONLY Indication: Trauma, fall Comparison: CT thoracic spine performed same day Findings: No focal airspace disease in the visualized lungs. No pleural effusion or pneumothorax. Marked enlargement of cardiac silhouette is due to cardiomegaly as seen on CT thoracic spine. Impression: 1. No acute cardiopulmonary process by portable radiography. 2. Marked cardiomegaly. Dictated by: Dictated on workstation # [id number]
--- NOTE | 2022-04-15 15:09 | Diagnostic Imaging Report ---
EXAMINATION: PELVIS WITH LEFT HIP 2-3 VIEWS. INDICATION: Pelvic trauma. COMPARISON: CT pelvis performed concurrently. TECHNIQUE: AP view of the pelvis. FINDINGS: No displaced fracture in the pelvis or proximal femurs. No hip dislocation. No diastasis of the SI joints or symphysis pubis. Dialysis catheter is noted within the lower abdomen. IMPRESSION: No displaced fracture or traumatic diastasis in the pelvis. Dictated by: Dictated on workstation # [id number]
--- NOTE | 2022-04-15 15:11 | Diagnostic Imaging Report ---
PROCEDURE: CT pelvis without contrast. TECHNIQUE: Multiple contiguous axial images were obtained through the pelvis without the use of intravenous contrast. Sagittal and coronal reformations were performed. Auto Exposure Controls were utilized during the CT exam to meet ALARA standards for radiation dose reduction. INDICATION: Patient fell two days ago with some left-sided pelvic pain. FINDINGS: There are arthritic changes to the bilateral hips. No femoral head collapse. Femoral heads, necks, trochanters, and visualized subtrochanteric shafts are nonacute. There are degenerative changes along the acetabular margins of the joints bilaterally but this was symmetric. No bony avulsion. Symphysis and SI joints are degenerated but unseparated. Superior and inferior pubic rami are intact. Sacrococcygeal curvature and segments appeared intact. There is lower lumbar spondylosis. There is a peritoneal catheter present. No loculated pelvic fluid collection. There is a peripherally calcified right groin mass, inseparable from the proximal SFA which is atherosclerotic. Its presumed a very large fusiform aneurysm but chronic peripherally partly calcified pseudoaneurysm could not be excluded. I have no priors to confirm its long-term stability but calcifications presumed to reflect its chronicity. This could be further interrogated with color Doppler and has a diameter of 4 cm. IMPRESSION: 1. No pelvic fracture, intra or extraperitoneal hemorrhage. 2. 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 No evidence for its rupture. Dictated by: Dictated on workstation # [id number]
[2022-04-15] MEDS ORDERED: ACHD5005 PO (15:21)
[2022-04-15 15:37] VITALS: BP 118/73
== END 2022-04-15 15:39 | disposition home or self-care (01) ==
LOC: EDUNIT# 11:59 → ER 12:01
DX: S09.90XA Unspecified injury of head, initial encounter (principal); S39.012A Strain of muscle, fascia and tendon of lower back, initial encounter; S70.02XA Contusion of left hip, initial encounter; I12.0 Hypertensive chronic kidney disease with stage 5 chronic kidney disease or end stage renal disease; E11.22 Type 2 diabetes mellitus with diabetic chronic kidney disease; N18.6 End stage renal disease; Z99.2 Dependence on renal dialysis; Z79.4 Long term (current) use of insulin; Z87.891 Personal history of nicotine dependence; Z79.01 Long term (current) use of anticoagulants; Z79.82 Long term (current) use of aspirin; W18.30XA Fall on same level, unspecified, initial encounter; Y92.009 Unspecified place in unspecified non-institutional (private) residence as the place of occurrence of the external cause
CPT/HCPCS: 70450; 71045; 72125; 72128; 72131; 72192

== ENCOUNTER 2022-06-05 14:22 | Emergency (ER) | payer MEDICARE, MEDICAID ==
[~2022-06-05] VITALS: Ht 182 cm; Wt 88.0 kg
[~2022-06-05 14:22] MED LIST changes: +ACHD5005 PO
[2022-06-05 14:35] LABS: HEMATOCRIT 31 % (40-54); MEAN CORPUSCULAR VOLUME 95 fL (80-99); MEAN PLATELET VOLUME 10.3 fL (9.0-12.2); NEUTROPHILS # (AUTO) 4.7 10^3/uL (1.8-7.8)
[2022-06-05 14:37] LABS: BASOPHILS # (AUTO) 0.1 10^3/uL (0.0-0.1); BASOPHILS % (AUTO) 1 % (0-10); EOSINOPHILS # (AUTO) 0.3 10^3/uL (0.0-0.3); EOSINOPHILS % (AUTO) 4 % (0-10); HEMOGLOBIN 10.4 g/dL (13.3-17.7); LYMPHOCYTES % (AUTO) 16 % (12-44); MEAN CORPUSCULAR HEMOGLOBIN 33 pg (25-34); MEAN CORPUSCULAR HGB CONC 34 g/dL (32-36); MONOCYTES # (AUTO) 0.5 10^3/uL (0.0-1.0); MONOCYTES % (AUTO) 8 % (0-12); NEUTROPHILS % (AUTO) 72 % (42-75); PLATELET COUNT 135 10^3/uL (130-400); WHITE BLOOD COUNT 6.6 10^3/uL (4.3-11.0)
[2022-06-05 14:41] LABS: SMEAR SCAN COMMENT YES
[2022-06-05 14:47] LABS: ALBUMIN 3.5 GM/DL (3.2-4.5); POTASSIUM 2.7 MMOL/L (3.6-5.0)
[2022-06-05 14:49] LABS: CALCIUM 9.2 MG/DL (8.5-10.1)
[2022-06-05 14:50] LABS: TOTAL PROTEIN 6.2 GM/DL (6.4-8.2)
[2022-06-05 14:52] LABS: BILIRUBIN,TOTAL 0.6 MG/DL (0.1-1.0)
[2022-06-05 14:54] LABS: CREATININE SERUM 11.08 MG/DL (0.60-1.30)
[2022-06-05 14:56] LABS: MAGNESIUM 1.5 MG/DL (1.6-2.4)
[2022-06-05] MEDS ORDERED: NS IV 1000 ML 1,000 ML IV ONE (15:15)
[2022-06-05] MEDS ORDERED: MAGNESIUM 1 GM/100 ML IVPB 100 ML IV ONE ×2 (15:15)
[2022-06-05] MEDS ORDERED: POTASSIUM CL 10MEQ/50ML IVPB 50 ML IV ONE ×3 (15:15→18:15)
--- NOTE | 2022-06-05 15:16 | ED Cardiac General ---
History of Present Illness General Chief Complaint: Dizziness/Syncope Stated Complaint: LOW BLOOD PRESSURE | BRADYCARDIA Nursing Triage Note: pt sent via EMS from [facility] after pt's BP and HR were found to be low, 60/40s and 30s. pt reports feeling dizzy at that time. EMS reports VSS en route and upon arrival, VS remain stable. pt appears pale and still reports "slight dizziness" but otherwise has no complaints. a&ox4. Source: patient, family, EMS Exam Limitations: no limitations (CHOLO GALLAGHER MD) History of Present Illness Date Seen by Provider: Jun 05, 2022 Time Seen by Provider: 14:23 Initial Comments This 62-year-old gentleman presents to the emergency room via EMS from [facility] where he was being seen for a follow-up visit. He was noted to have a blood pressure in the 60/48 range and a heart rate in the 30s. He was feeling somewhat dizzy but overall was not feeling sick. He reports feeling like he may need a blood transfusion. He has had severe anemia in the past requiring transfusion. He has end-stage renal disease and does peritoneal dialysis daily. He makes a small amount of urine 2 or 3 times daily. He is presently being evaluated for a transplant candidate at [facility]. His network engineer administrator is Dr. Song Tom. His primary care is at [facility]. Fingerstick blood sugar was 226. (CHOLO GALLAGHER MD) Allergies and Home Medications Allergies Coded Allergies: No Known Drug Allergies (Unverified , 12/11/11) Patient Home Medication List Home Medication List Reviewed: Yes (CHOLO GALLAGHER MD) Amlodipine Besylate (Amlodipine Besylate) 10 Mg Tablet, 10 MG PO DAILY, (Reported) Entered as Reported by: CARITO HARTMANN on 03/21/21928 Aspirin (Aspirin) 81 Mg Tab.chew, 81 MG PO DAILY Prescribed by: BERNABE PIKE JR, MD on 03/21/21 1338 Atorvastatin Calcium (Atorvastatin Calcium) 40 Mg Tablet, 40 MG PO DAILY, (Reported) Entered as Reported by: CARITO HARTMANN on 03/21/21928 Calcitriol (Calcitriol) 0.25 Mcg Capsule, 0.25 MCG PO HS, (Reported) Entered as Reported by: CARITO HARTMANN on 03/21/21928 Calcium Acetate (Calcium Acetate) 667 Mg Tablet, 1,334 MG PO TID, (Reported) Entered as Reported by: CARITO HARTMANN on 03/21/21928 Carvedilol (Carvedilol) 25 Mg Tablet, 25 MG PO BID, (Reported) Entered as Reported by: CARITO HARTMANN on 03/21/21928 Cholecalciferol (Vitamin D3) (Vitamin D3) 125 Mcg Tablet, 125 MCG PO DAILY, (Reported) Entered as Reported by: CARITO HARTMANN on 03/21/21928 Clonidine (Clonidine TTS 2 Patch) 1 Each Patch.tdwk, 1 PATCH TD SUN, (Reported) Entered as Reported by: CARITO HARTMANN on 03/21/21928 Cyanocobalamin (Vitamin B-12) (Vitamin B-12) 1,000 Mcg Tab.subl, 1,000 MCG SL DAILY, (Reported) Entered as Reported by: CARITO HARTMANN on 03/21/21928 Doxycycline Hyclate (Doxycycline Hyclate) 100 Mg Capsule, 100 MG PO BID Prescribed by: CHOLO EDGAR on 03/27/21925 Esomeprazole Magnesium (Nexium 24Hr) 20 Mg Tablet.dr, 20 MG PO DAILY, (Reported) Entered as Reported by: CARITO HARTMANN on 03/21/21928 Folic Acid/Vitamin B Comp W-C (Dialyvite 800 Tablet) 0.8 Mg Tablet, 0.8 MG PO HS, (Reported) Entered as Reported by: CARITO HARTMANN on 03/21/21928 Furosemide (Furosemide) 80 Mg Tablet, 80 MG PO DAILY, (Reported) Entered as Reported by: CARITO HARTMANN on 03/21/21928 Hydralazine HCl (Hydralazine HCl) 100 Mg Tablet, 100 MG PO BID, (Reported) Entered as Reported by: CARITO HARTMANN on 03/21/21928 Hydrocodone/Acetaminophen (Hydrocodone-Acetamin 5-325 mg) 5 Mg-325 Mg Tablet, 1 EACH PO Q4-6 HOURS PRN for PAIN Prescribed by: NHUNG LI on 04/15/22 152 Isosorbide Mononitrate (Isosorbide Mononitrate ER) 60 Mg Tab, 60 MG PO DAILY Prescribed by: BERNABE PIKE JR, MD on 03/21/21 1047 Ondansetron (Ondansetron Odt) 4 Mg Tab.rapdis, 4 MG SL Q4H PRN for NAUSEA/VOMITING Prescribed by: CHOLO EDGAR on 03/27/21 0926 Review of Systems Review of Systems Constitutional: see HPI, other (Fatigue) EENTM: No Symptoms Reported Respiratory: No Symptoms Reported Cardiovascular: See HPI, Other (Frequent PVCs on telemetry) Gastrointestinal: Vomiting (Daily, chronic) Genitourinary: See HPI Musculoskeletal: no symptoms reported Skin: no symptoms reported Psychiatric/Neurological: No Symptoms Reported Endocrine: See HPI Hematologic/Lymphatic: No Symptoms Reported (CHOLO GALLAGHER MD) Past Ifsiecl-Rusxyl-Acesny Hx Patient Social History Tobacco Use?: No Substance use?: No Alcohol Use?: No Pt feels they are or have been: No (CHOLO GALLAGHER MD) Immunizations Up To Date Influenza Vaccine Up-to-Date: Yes; Up-to-Date (CHOLO GALLAGHER MD) Past Medical History Surgeries: Yes (PERITONEAL DIALYSIS PORT IN ABDOMEN) Cardiac, Coronary Stent, Dialysis, Vascular Surgery (Pseudoaneurysm repair) Respiratory: No Cardiac: Yes Coronary Artery Disease, Heart Attack, Heart Murmur, High Cholesterol, Hypertension Neurological: Yes Neuropathy Genitourinary: Yes Renal Failure, Dialysis Gastrointestinal: Yes Gastroesophageal Reflux Musculoskeletal: No Endocrine: Yes Diabetes, Insulin dep HEENT: No Cancer: Yes Skin Did You Recieve Any Treatments: Yes What Type of Treatment Did You: Surgical Intervention Psychosocial: No Integumentary: No Blood Disorders: No (CHOLO GALLAGHER MD) Family Medical History SOCIAL HISTORY: -SMOKED UNTIL HE WAS IN HIS 40'S -DENIES ETOH -DENIES DRUG USE PAST SURGICAL HISTORY: -PERITONIAL DIALYSIS PORT IN ABDOMEN -CARDIAC CATHS WITH STENTS X 3-4 (CHOLO GALLAGHER MD) Physical Exam Vital Signs Vital Signs - First Documented 06/05/22 14:23 Temp 36.6 Pulse 68 Resp 25 B/P (MAP) 96/62 (73) Pulse Ox 99 O2 Delivery Room Air (AKASH JONES MD) Vital Signs Capillary Refill : Less Than 3 Seconds (CHOLO GALLAGHER MD) Height, Weight, BMI Height: '" Weight: lbs. oz. kg; 26.00 BMI Method:Stated General Appearance: No Apparent Distress, WD/WN HEENT: PERRL/EOMI, Normal ENT Inspection Neck: Normal Inspection Respiratory: Lungs Clear, Normal Breath Sounds, No Accessory Muscle Use Cardiovascular: No Edema, No Murmur, Other (Irregular rhythm with frequent PVCs and frequently in bigeminy) Gastrointestinal: Non Tender, Soft, Other (Peritoneal dialysis port clean, dry, intact, and without evidence of inflammation or purulent drainage) Extremity: Normal Inspection, No Pedal Edema Neurologic/Psychiatric: Alert, Oriented x3, No Motor/Sensory Deficits, Normal Mood/Affect Skin: Normal Color, Warm/Dry (CHLOO GALLAGHER MD) Progress/Results/Core Measures Results/Orders Lab Results Laboratory Tests Test 06/05/22 14:28 06/05/22 14:31 Range/Units White Blood Count 6.6 4.3-11.0 10^3/uL Red Blood Count 3.20 L 4.30-5.52 10^6/uL Hemoglobin 10.4 L 13.3-17.7 g/dL Hematocrit 31 L 40-54 % Mean Corpuscular Volume 95 80-99 fL Mean Corpuscular Hemoglobin 33 25-34 pg Mean Corpuscular Hemoglobin Concent 34 32-36 g/dL Red Cell Distribution Width 13.9 10.0-14.5 % Platelet Count 135 130-400 10^3/uL Mean Platelet Volume 10.3 9.0-12.2 fL Immature Granulocyte % (Auto) 0 % Neutrophils (%) (Auto) 72 42-75 % Lymphocytes (%) (Auto) 16 12-44 % Monocytes (%) (Auto) 8 0-12 % Eosinophils (%) (Auto) 4 0-10 % Basophils (%) (Auto) 1 0-10 % Neutrophils # (Auto) 4.7 1.8-7.8 10^3/uL Lymphocytes # (Auto) 1.0 1.0-4.0 10^3/uL Monocytes # (Auto) 0.5 0.0-1.0 10^3/uL Eosinophils # (Auto) 0.3 0.0-0.3 10^3/uL Basophils # (Auto) 0.1 0.0-0.1 10^3/uL Immature Granulocyte # (Auto) 0.0 0.0-0.1 10^3/uL Percent Immature Platelet Fraction 4.2 0.0-7.6 % Sodium Level 138 135-145 MMOL/L Potassium Level 2.7 L 3.6-5.0 MMOL/L Chloride Level 94 L 98-107 MMOL/L Carbon Dioxide Level 26 21-32 MMOL/L Anion Gap 18 H 5-14 MMOL/L Blood Urea Nitrogen 43 H 7-18 MG/DL Creatinine 11.08 H 0.60-1.30 MG/DL Estimat Glomerular Filtration Rate 5 BUN/Creatinine Ratio 4 Glucose Level 252 H 70-105 MG/DL Calcium Level 9.2 8.5-10.1 MG/DL Corrected Calcium 9.6 8.5-10.1 MG/DL Magnesium Level 1.5 L 1.6-2.4 MG/DL Total Bilirubin 0.6 0.1-1.0 MG/DL Aspartate Amino Transf (AST/SGOT) 9 5-34 U/L Alanine Aminotransferase (ALT/SGPT) 9 0-55 U/L Alkaline Phosphatase 85 40-136 U/L C-Reactive Protein High Sensitivity 0.25 0.00-0.50 MG/DL Total Protein 6.2 L 6.4-8.2 GM/DL Albumin 3.5 3.2-4.5 GM/DL Smear Scan YES Glucometer 226 H 70-110 MG/DL (AKASH JONES MD) Medications Given in ED Current Medications Medications Dose Ordered Sig/Julian Route Start Time Stop Time Status Last Admin Dose Admin Magnesium Sulfate/ Dextrose 100 ml @ 100 mls/hr ONCE ONCE IV 06/05/22 15:15 06/05/22 16:14 DC 06/05/22 15:26 100 MLS/HR Magnesium Sulfate/ Dextrose 100 ml @ 100 mls/hr ONCE ONCE IV 06/05/22 15:15 06/05/22 16:14 DC 06/05/22 16:12 100 MLS/HR Potassium Chloride 50 ml @ 50 mls/hr ONCE ONCE IV 06/05/22 15:15 06/05/22 16:14 DC 06/05/22 15:26 50 MLS/HR Potassium Chloride 50 ml @ 50 mls/hr ONCE ONCE IV 3/2/23 15:15 06/05/22 16:14 DC 06/05/22 16:12 50 MLS/HR Potassium Chloride 50 ml @ 50 mls/hr ONCE ONCE IV 06/05/22 18:15 06/05/22 19:14 DC 06/05/22 18:14 50 MLS/HR Sodium Chloride 1,000 ml @ 100 mls/hr Q10H ONCE IV 06/05/22 15:15 06/06/22 01:14 06/05/22 15:26 100 MLS/HR (AKASH JONES MD) Vital Signs/I&O 06/05/22 14:23 Temp 36.6 Pulse 68 Resp 25 B/P (MAP) 96/62 (73) Pulse Ox 99 O2 Delivery Room Air (AKASH JONES MD) Blood Pressure Mean: 73 Progress Progress Note #1: Time: 17:05 Progress Note Patient was interviewed and examined shortly upon arrival. He was noted to have a soft blood pressure and bradycardia. Rhythm on the monitor and EKGs demonstrated bigeminy with bradycardia. Rates including PVCs is in the 60s. Palpable pulse rate is in the 30s. While resting in bed patient is asymptomatic. I discussed the case with Dr. Mike and reviewed labs with him. Patient has notable electrolyte abnormalities with a potassium of 2.7 and magnesium of 1.5. Correction of electrolytes was recommended to hopefully treat the PVCs and resolve the bigeminy. We are presently slowly infusing magnesium 2 g IV and potassium 20 mEq IV. We will continue to monitor at this time. Progress Note #2: Time: 18:10 Progress Note Patient has had some longer stretches of normal sinus rhythm but is currently in bigeminy after Magnesium 2 g IV and Potassium 20 mEq IV. I have ordered an additional Potassium 10 mEq IV dose and will transition care to Dr. Jones. (CHOLO GALLAGHER MD) Progress Note : Time: 19:32 Progress Note Patient here assumed at shift change with ongoing monitoring for bigeminy versus normal sinus. Patient was getting his third 10 mEq of IV potassium at shift change. Reevaluated at this time, his blood pressure is 130 systolic, heart rate between 60s and 70s 90% of the time appears normal sinus. He is completely asymptomatic. He verbalizes understanding of the plan of care, to touch base w ith his network engineer administrator and his french comber tomorrow morning. He states that he notices that he has some breathing issues mostly at night, can feel sometimes "extra beats". He has not talked to his french comber about this. He currently has no shortness of breath, no chest pain. No questions. He has received and total 30 mEq of IV potassium and 2 g of magnesium. I discussed return precautions with the patient. He verbalized understanding. All questions are sought and answered. (AKASH JONES MD) EKG #1: EKG Time: 14:45 Rate: 80 Rhythm: Ventricular bigeminy Comment Sinus rhythm with ventricular bigeminy. No ST elevation or depression. No axis deviation. EKG #2: EKG Time: 15:02 Rate: 85 Comment Sinus rhythm with ventricular bigeminy. No ST elevation or depression. No axis deviation. (CHOLO GALLAGHER MD) Departure Impression Primary Impression: Sinus bradycardia Additional Impressions: Bigeminy Hypokalemia Hypomagnesemia End stage renal failure on dialysis Disposition: 01 HOME, SELF-CARE Condition: Improved Departure-Patient Inst. Decision time for Depature: 19:34 (AKASH JONES MD) Referrals: LULU ARIZMENDI APRN (PCP) Primary Care Physician [facility] (Family) Primary Care Physician Patient Instructions: Palpitations, Hypokalemia (DC) Add. Discharge Instructions: Continue your daily medications as prescribed. Please contact both your heart doctor as well as your kidney doctor tomorrow to let them know that you were in the emergency room and that you had low potassium, low magnesium and an irregular heartbeat, specifically "Bigeminy". Your heart rhythm has improved with replacement of potassium and magnesium. Your blood pressure is much better. If you develop any weakness, chest pain, shortness of breath or passing out spells please come back to the emergency room for reevaluation. Copy Copies To 1: SIMÓN BALLESTEROS JOSHUA T MD Jun 05, 2022 15:16 AKASH JONES MD Jun 05, 2022 19:35
[2022-06-05 19:40] VITALS: BP 130/84
== END 2022-06-05 19:42 | disposition home or self-care (01) ==
LOC: EDUNIT# 14:22 → ER 14:23
DX: R00.1 Bradycardia, unspecified (principal); R00.8 Other abnormalities of heart beat; E87.6 Hypokalemia; E83.42 Hypomagnesemia; E11.22 Type 2 diabetes mellitus with diabetic chronic kidney disease; I13.11 Hypertensive heart and chronic kidney disease without heart failure, with stage 5 chronic kidney disease, or end stage renal disease; N18.6 End stage renal disease; Z99.2 Dependence on renal dialysis; Z79.4 Long term (current) use of insulin; Z87.891 Personal history of nicotine dependence
CPT/HCPCS: 36415; 80053; 82947; 83735; 85025; 86141; 93005; 93041

== ENCOUNTER 2022-07-17 09:51 | Emergency (ER) | payer MEDICARE, MEDICAID ==
[~2022-07-17] VITALS: Ht 182 cm; Wt 90.0 kg
[2022-07-17] MEDS ORDERED: fentaNYL INJ 100 MCG/2 ML AMP IVP STA (11:04)
--- NOTE | 2022-07-17 11:09 | ED General ---
General Chief Complaint: General Problems/Pain Stated Complaint: GOUT | SWELLING | Nursing Triage Note: PT TO RM 6 PER W/C PT HAVING GOUT FLARE UP, PT HAND,KNEES, ELBOWS SWELLING,WARMNESS, AND SEVERE PAIN. PT HAS RENAL FAILURE AND DOES HOME PERITONEAL DIALYSIS. PT STATES ALSO FEELS DEHYDRATED Source of Information: Patient Exam Limitations: No Limitations History of Present Illness Date Seen by Provider: Jul 17, 2022 Time Seen by Provider: 11:06 Initial Comments Patient is a 62-year-old male with a history of gout, chronic kidney disease, cirrhosis, coronary artery disease who presents to ED for bilateral elbow, bilateral wrist and right knee pain. This started last night. Pain is yair cribed as sharp and constant. Pain has increased today. States last time he had a gout flare was last year in his right knee. Also reports history of gout in his left foot a few years ago. Patient does do peritoneal dialysis daily. Currently on the waiting list for kidney transplant. Denies of any fever, diarrhea, chest pain, shortness of breath or cough. Did vomited once before arrival but states he does have a hiatal hernia which she does have intermittent vomiting. States he feels dehydrated. Denies fever, chills, body aches, redness of the joints. Patient main concern is decreased range of motion and pain. Allergies and Home Medications Allergies Coded Allergies: No Known Drug Allergies (Unverified , 12/11/11) Patient Home Medication List Home Medication List Reviewed: Yes Amlodipine Besylate (Amlodipine Besylate) 10 Mg Tablet, 10 MG PO DAILY, (Reported) Entered as Reported by: CARITO HARTMANN on 03/21/21928 Aspirin (Aspirin) 81 Mg Tab.chew, 81 MG PO DAILY Prescribed by: BERNABE PIKE JR, MD on 03/21/21 1338 Atorvastatin Calcium (Atorvastatin Calcium) 40 Mg Tablet, 40 MG PO DAILY, (Reported) Entered as Reported by: CARITO HARTMANN on 03/21/21928 Calcitriol (Calcitriol) 0.25 Mcg Capsule, 0.25 MCG PO HS, (Reported) Entered as Reported by: CARITO HARTMANN on 03/21/21928 Calcium Acetate (Calcium Acetate) 667 Mg Tablet, 1,334 MG PO TID, (Reported) Entered as Reported by: CARITO HARTMANN on 03/21/21928 Carvedilol (Carvedilol) 25 Mg Tablet, 25 MG PO BID, (Reported) Entered as Reported by: CARITO HARTMANN on 03/21/21928 Cholecalciferol (Vitamin D3) (Vitamin D3) 125 Mcg Tablet, 125 MCG PO DAILY, (Reported) Entered as Reported by: CARITO HARTMANN on 03/21/21928 Clonidine (Clonidine TTS 2 Patch) 1 Each Patch.tdwk, 1 PATCH TD SUN, (Reported) Entered as Reported by: CARITO HARTMANN on 03/21/21928 Cyanocobalamin (Vitamin B-12) (Vitamin B-12) 1,000 Mcg Tab.subl, 1,000 MCG SL DAILY, (Reported) Entered as Reported by: CARITO HARTMANN on 03/21/21928 Doxycycline Hyclate (Doxycycline Hyclate) 100 Mg Capsule, 100 MG PO BID Prescribed by: CHOLO EDGAR on 03/27/21925 Esomeprazole Magnesium (Nexium 24Hr) 20 Mg Tablet.dr, 20 MG PO DAILY, (Reported) Entered as Reported by: CARITO HARTMANN on 03/21/21928 Folic Acid/Vitamin B Comp W-C (Dialyvite 800 Tablet) 0.8 Mg Tablet, 0.8 MG PO HS, (Reported) Entered as Reported by: CARITO HARTMANN on 03/21/21928 Furosemide (Furosemide) 80 Mg Tablet, 80 MG PO DAILY, (Reported) Entered as Reported by: CARITO HARTMANN on 03/21/21928 Hydralazine HCl (Hydralazine HCl) 100 Mg Tablet, 100 MG PO BID, (Reported) Entered as Reported by: CARITO HARTMANN on 03/21/21928 Hydrocodone/Acetaminophen (Hydrocodone-Acetamin 5-325 mg) 5 Mg-325 Mg Tablet, 1 EACH PO Q4-6 HOURS PRN for PAIN Prescribed by: NHUNG LI on 04/15/22 1522 Hydrocodone/Acetaminophen (Hydrocodone-Acetamin 5-325 mg) 5 Mg-325 Mg Tablet, 1 TAB PO Q4H PRN for PAIN-MODERATE (5-7) Prescribed by: ALEC YOUSIF on 07/17/22 1230 Isosorbide Mononitrate (Isosorbide Mononitrate ER) 60 Mg Tab, 60 MG PO DAILY Prescribed by: BERNABE PIKE JR, MD on 03/21/21 1047 Ondansetron (Ondansetron Odt) 4 Mg Tab.rapdis, 4 MG SL Q4H PRN for NAUSEA/VOMITING Prescribed by: CHOLO EDGAR on 03/27/21 0926 Prednisone (Prednisone) 10 Mg Tab.ds.pk, 10 MG PO DAILY Prescribed by: ALEC YOUSIF on 07/17/22 1230 Review of Systems Review of Systems Constitutional: No chills, No diaphoresis, No malaise, No weakness Respiratory: No cough, No dyspnea on exertion Cardiovascular: No chest pain, No edema Gastrointestinal: No abdominal pain, No constipation, No diarrhea, No nausea, No vomiting Genitourinary: No decreased output, No discharge Musculoskeletal: No back pain; joint pain, joint swelling, muscle pain Skin: No change in color All Other Systems Reviewed Negative Unless Noted: Yes Past Ivnaisu-Vmprog-Plwhjg Hx Patient Social History Tobacco Use?: No Substance use?: No Alcohol Use?: No Pt feels they are or have been: No Immunizations Up To Date Influenza Vaccine Up-to-Date: Yes; Up-to-Date First/Initial COVID19 Vaccinat: YES Second COVID19 Vaccination Jonathan: YES Past Medical History Surgery/Hospitalization HX: DIABETIC, PERITONEAL DIALYSIS Surgeries: Yes (PERITONEAL DIALYSIS PORT IN ABDOMEN) Cardiac, Coronary Stent, Dialysis, Vascular Surgery Respiratory: No Cardiac: Yes Coronary Artery Disease, Heart Attack, Heart Murmur, High Cholesterol, Hypertension Neurological: Yes Neuropathy Genitourinary: Yes Renal Failure, Dialysis Gastrointestinal: Yes Gastroesophageal Reflux Musculoskeletal: No Endocrine: Yes Diabetes, Insulin dep HEENT: No Cancer: Yes Skin Did You Recieve Any Treatments: Yes What Type of Treatment Did You: Surgical Intervention Psychosocial: No Integumentary: No Blood Disorders: No Family Medical History SOCIAL HISTORY: -SMOKED UNTIL HE WAS IN HIS 40'S -DENIES ETOH -DENIES DRUG USE PAST SURGICAL HISTORY: -PERITONIAL DIALYSIS PORT IN ABDOMEN -CARDIAC CATHS WITH STENTS X 3-4 Physical Exam Vital Signs Vital Signs - First Documented 07/17/22 10:35 Temp 37.1 Pulse 74 Resp 15 B/P (MAP) 128/71 (90) Capillary Refill : Less Than 3 Seconds Height, Weight, BMI Height: '" Weight: lbs. oz. kg; 27.00 BMI Method:Stated General Appearance: No Apparent Distress, WD/WN Eyes: Bilateral Eye Normal Inspection, Bilateral Eye PERRL, Bilateral Eye EOMI HEENT: PERRL/EOMI, TMs Normal, Normal ENT Inspection, Pharynx Normal Neck: Full Range of Motion, Normal Inspection, Non Tender, Supple Respiratory: Chest Non Tender, Lungs Clear, Normal Breath Sounds, No Accessory Muscle Use, No Respiratory Distress Cardiovascular: Regular Rate, Rhythm, No Edema, No Gallop, No JVD, No Murmur Gastrointestinal: Normal Bowel Sounds, No Organomegaly, No Pulsatile Mass, Non Tender Back: Normal Inspection, No CVA Tenderness, No Vertebral Tenderness Extremity: Other (Bilateral elbow tenderness, bilateral wrist tenderness with decreased range of motion. Swelling noted without erythema. Warmth noted. Warmth and swelling noted to right anterior knee with limited passive range of motion.) Neurologic/Psychiatric: Alert, Oriented x3, No Motor/Sensory Deficits, Normal Mood/Affect Progress/Results/Core Measures Suspected Sepsis SIRS Temperature: Pulse: 74 Respiratory Rate: 15 Laboratory Tests 07/17/22 10:42: White Blood Count 7.1 Blood Pressure 128 /71 Mean: 90 Laboratory Tests 07/17/22 10:42: Creatinine 10.75H, Platelet Count 106L, Total Bilirubin 0.5 Results/Orders Lab Results Laboratory Tests Test 07/17/22 10:42 Range/Units White Blood Count 7.1 4.3-11.0 10^3/uL Red Blood Count 2.58 L 4.30-5.52 10^6/uL Hemoglobin 8.4 L 13.3-17.7 g/dL Hematocrit 24 L 40-54 % Mean Corpuscular Volume 94 80-99 fL Mean Corpuscular Hemoglobin 33 25-34 pg Mean Corpuscular Hemoglobin Concent 35 32-36 g/dL Red Cell Distribution Width 12.9 10.0-14.5 % Platelet Count 106 L 130-400 10^3/uL Mean Platelet Volume 11.4 9.0-12.2 fL Immature Granulocyte % (Auto) 0 % Neutrophils (%) (Auto) 80 H 42-75 % Lymphocytes (%) (Auto) 7 L 12-44 % Monocytes (%) (Auto) 9 0-12 % Eosinophils (%) (Auto) 3 0-10 % Basophils (%) (Auto) 0 0-10 % Neutrophils # (Auto) 5.6 1.8-7.8 10^3/uL Lymphocytes # (Auto) 0.5 L 1.0-4.0 10^3/uL Monocytes # (Auto) 0.6 0.0-1.0 10^3/uL Eosinophils # (Auto) 0.2 0.0-0.3 10^3/uL Basophils # (Auto) 0.0 0.0-0.1 10^3/uL Immature Granulocyte # (Auto) 0.0 0.0-0.1 10^3/uL Neutrophils % (Manual) 78 % Lymphocytes % (Manual) 6 % Monocytes % (Manual) 8 % Eosinophils % (Manual) 7 % Basophils % (Manual) 1 % Percent Immature Platelet Fraction 4.2 0.0-7.6 % Blood Morphology Comment NORMAL Erythrocyte Sedimentation Rate 71 H 0-30 MM/HR Sodium Level 136 135-145 MMOL/L Potassium Level 3.7 3.6-5.0 MMOL/L Chloride Level 96 L 98-107 MMOL/L Carbon Dioxide Level 21 21-32 MMOL/L Anion Gap 19 H 5-14 MMOL/L Blood Urea Nitrogen 49 H 7-18 MG/DL Creatinine 10.75 H 0.60-1.30 MG/DL Estimat Glomerular Filtration Rate 5 BUN/Creatinine Ratio 5 Glucose Level 176 H 70-105 MG/DL Calcium Level 8.8 8.5-10.1 MG/DL Corrected Calcium 9.4 8.5-10.1 MG/DL Total Bilirubin 0.5 0.1-1.0 MG/DL Aspartate Amino Transf (AST/SGOT) 9 5-34 U/L Alanine Aminotransferase (ALT/SGPT) 16 0-55 U/L Alkaline Phosphatase 78 40-136 U/L C-Reactive Protein High Sensitivity 4.37 H 0.00-0.50 MG/DL Total Protein 6.0 L 6.4-8.2 GM/DL Albumin 3.2 3.2-4.5 GM/DL My Orders Orders - SHERWIN YUNG Cbc With Automated Diff (07/17/22 11:04) Comprehensive Metabolic Panel (07/17/22 11:04) Erythrocyte Sedimentation Rate (07/17/22 11:04) Hs C Reactive Protein (07/17/22 11:04) Methylprednisolone Sod Succ (Solu-Medrol (07/17/22 11:15) Fentanyl Inj (Sublimaze Injection) (07/17/22 11:04) Manual Differential (07/17/22 10:42) Morphine Injection (Morphine Injection (07/17/22 11:29) Medications Given in ED Current Medications Medications Dose Ordered Sig/Julian Route Start Time Stop Time Status Last Admin Dose Admin Methylprednisolone Sodium Succinate 80 mg ONCE ONCE IV 07/17/22 11:15 07/17/22 11:16 DC 07/17/22 11:23 80 MG Vital Signs/I&O 07/17/22 10:35 Temp 37.1 Pulse 74 Resp 15 B/P (MAP) 128/71 (90) Capillary Refill : Less Than 3 Seconds Blood Pressure Mean: 90 Departure Communication (PCP) Patient is complaining of pain in his elbows, wrist and right knee. History of gout. States symptoms feel very similar to his gout flare specially his right knee. History of flare in his left foot. Patient does have notable swelling and warmth to right knee without erythema. Tenderness to palpate bilateral wrist and elbow without evidence of significant swelling or redness. May be very minimal swelling of the wrist. Pain with range of motion. No recent URI symptoms or fever. Denies of any dark tarry stool. Patient performs peritoneal hemodialysis every night. Patient is diabetic. Due to current complaints CBC, CMP, ESR and CRP was ordered. Was given dose of fentanyl secondary to pain. NSAIDs contradicted in dialysis patients. Patient was given a dose of Solu- Medrol. Discussed with patient that this may increase his blood sugar. Patient is aware and has been on steroids in the past. Patient pain continue to improve. Started having better movement and range of motion. Discussed other etiologies such as reactive arthritis, inflammatory arthritis. No evidence suggesting infection. No history of RA, lupus. Concerning for more of inflammatory process. I do feel steroids would likely help with this pain. I did discuss patient with Dr. Cr manager management regarding his history of d ialysis and what medication he can take. He does take alloupirnol. She did suggest cholchine at a low dose but patient refused. He states he will take prednisone taper dose with the 6 days worth. Provide a few days worth of pain medication. Patient states he is feeling much better at this time will follow- up with his primary care physician 2 to 3 days for reevaluation. Return precaution were discussed such as redness, swelling, fever, pain that has worsened. Impression Primary Impression: Joint pain Disposition: 01 HOME, SELF-CARE Condition: Stable Departure-Patient Inst. Decision time for Depature: 12:26 Referrals: LULU ARIZMENDI APRN (PCP) Primary Care Physician [facility] (Family) Primary Care Physician Patient Instructions: Joint Pain Scripts Hydrocodone/Acetaminophen (Hydrocodone-Acetamin 5-325 mg) 5 Mg-325 Mg Tablet 1 TAB PO Q4H PRN for PAIN-MODERATE (5-7), #8 TAB Prov: SHERWIN YUNG 07/17/22 Prednisone (Prednisone) 10 Mg Tab.ds.pk 10 MG PO DAILY, #21 EA Take 6 tabs(60mg)daily,decrease by 1 tab(10MG)daily. Prov: SHERWIN YUNG 07/17/22 SHERWIN YUNG Jul 17, 2022 11:09
[2022-07-17 11:10] LABS: HEMOGLOBIN 8.4 g/dL (13.3-17.7)
[2022-07-17 11:12] LABS: BASOPHILS % (AUTO) 0 % (0-10); EOSINOPHILS # (AUTO) 0.2 10^3/uL (0.0-0.3); EOSINOPHILS % (AUTO) 3 % (0-10); HEMATOCRIT 24 % (40-54); LYMPHOCYTES # (AUTO) 0.5 10^3/uL (1.0-4.0); LYMPHOCYTES % (AUTO) 7 % (12-44); MEAN CORPUSCULAR HEMOGLOBIN 33 pg (25-34); MEAN CORPUSCULAR HGB CONC 35 g/dL (32-36); MEAN CORPUSCULAR VOLUME 94 fL (80-99); MEAN PLATELET VOLUME 11.4 fL (9.0-12.2); MONOCYTES # (AUTO) 0.6 10^3/uL (0.0-1.0); MONOCYTES % (AUTO) 9 % (0-12); NEUTROPHILS # (AUTO) 5.6 10^3/uL (1.8-7.8); NEUTROPHILS % (AUTO) 80 % (42-75); PLATELET COUNT 106 10^3/uL (130-400); WHITE BLOOD COUNT 7.1 10^3/uL (4.3-11.0)
[2022-07-17 11:14] LABS: ALBUMIN 3.2 GM/DL (3.2-4.5); POTASSIUM 3.7 MMOL/L (3.6-5.0)
[2022-07-17] MEDS ORDERED: methylPREDNISolone 40 MG/ML (Solu-MEDROL) VIAL IV ONE (11:15)
[2022-07-17 11:16] LABS: CALCIUM 8.8 MG/DL (8.5-10.1)
[2022-07-17 11:19] LABS: BILIRUBIN,TOTAL 0.5 MG/DL (0.1-1.0)
[2022-07-17 11:21] LABS: CREATININE SERUM 10.75 MG/DL (0.60-1.30)
[2022-07-17] MEDS ORDERED: morphine INJ 10 MG/ML 1ML (SYR OR VIAL) ONE (11:29)
[2022-07-17 11:43] LABS: ERYTHROCYTE SEDIMENTATION RATE 71 MM/HR (0-30)
[2022-07-17 11:52] LABS: BASOPHILS % (MANUAL) 1 %; EOSINOPHILS % (MANUAL) 7 %; LYMPHOCYTES % (MANUAL) 6 %; MONOCYTES % (MANUAL) 8 %; NEUTROPHILS % (MANUAL) 78 %; RBC MORPH NORMAL
[2022-07-17] MEDS ORDERED: ACHD5005 PO (12:30)
[2022-07-17] MEDS ORDERED: PRED10TA22 PO (12:30)
[2022-07-17 12:56] VITALS: BP 121/62
== END 2022-07-17 12:56 | disposition home or self-care (01) ==
LOC: EDUNIT# 09:51 → ER 09:53
DX: M25.522 Pain in left elbow (principal); M25.521 Pain in right elbow; M25.532 Pain in left wrist; M25.531 Pain in right wrist; M25.561 Pain in right knee; I13.10 Hypertensive heart and chronic kidney disease without heart failure, with stage 1 through stage 4 chronic kidney disease, or unspecified chronic kidney disease; E11.22 Type 2 diabetes mellitus with diabetic chronic kidney disease; N18.9 Chronic kidney disease, unspecified; Z79.4 Long term (current) use of insulin; Z99.2 Dependence on renal dialysis; Z79.52 Long term (current) use of systemic steroids
CPT/HCPCS: 36415; 80053; 85007; 85027; 85652; 86141

== ENCOUNTER 2022-07-26 15:07 | Emergency (ER) | payer MEDICARE, MEDICAID ==
[~2022-07-26] VITALS: Ht 182 cm; Wt 94.0 kg
[~2022-07-26 15:07] MED LIST changes: +PRED10TA22 PO
[2022-07-26] MEDS ORDERED: morphine INJ 10 MG/ML 1ML (SYR OR VIAL) IM STA (15:58)
--- NOTE | 2022-07-26 15:59 | ED Lower Extremity ---
General Chief Complaint: Lower Extremity Stated Complaint: GOUT IN BOTH KNEES Nursing Triage Note: PT TO FT1 CO OF PAIN IN KNEES PT STATES HAS GOUT STARTING IT 2 DAYS Source: patient, family History of Present Illness Date Seen by Provider: Jul 26, 2022 Time Seen by Provider: 15:50 Initial Comments Patient is a 62-year-old male with a history of coronary artery disease, chronic renal disease on peritoneal dialysis and diabetes who presents to the emergency room with a chief complaint of worsening bilateral knee pain and swelling the last couple of days. Patient tells me that he has a history of "gout". He has had intermittent flares of joint swelling and pain several years ago in his foot at the big toe, most recently 10 days ago in his knees, elbows and wrists. He tells me he has never had a joint aspirated or drained to demonstrate gouty crystals. He cannot recall any dietary triggers. He states his pain was so severe last night he was unable to perform his peritoneal dialysis because he could not stand to hooked himself up. He denies fevers or chills. No new chest pain or shortness of breath. No nausea or vomiting. He does have a prescription for hydrocodone and states that he is taking it but it does not touch the pain. He was given a steroid taper on 18 July. He completed that on the . He states it helped but after a couple of days now his symptoms have returned. He would like to have another round of steroids. 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 He is working on getting placed on the renal transplant list. Onset: yesterday Severity: severe Pain/Injury Location: bilateral knee Method of Injury: other ("gout" flare) Modifying Factors: Improves With Immobilization, Improves With Pain Medication Allergies and Home Medications Allergies Coded Allergies: No Known Drug Allergies (Unverified , 12/11/11) Patient Home Medication List Home Medication List Reviewed: Yes Amlodipine Besylate (Amlodipine Besylate) 10 Mg Tablet, 10 MG PO DAILY, (Reported) Entered as Reported by: CARITO HARTMANN on 03/21/21 0929 Aspirin (Aspirin) 81 Mg Tab.chew, 81 MG PO DAILY Prescribed by: BERNABE PIKE JR, MD on 03/21/21 1338 Atorvastatin Calcium (Atorvastatin Calcium) 40 Mg Tablet, 40 MG PO DAILY, (Reported) Entered as Reported by: CARITO HARTMANN on 03/21/21928 Calcitriol (Calcitriol) 0.25 Mcg Capsule, 0.25 MCG PO HS, (Reported) Entered as Reported by: CARITO HARTMANN on 03/21/21928 Calcium Acetate (Calcium Acetate) 667 Mg Tablet, 1,334 MG PO TID, (Reported) Entered as Reported by: CARITO HARTMANN on 03/21/21928 Carvedilol (Carvedilol) 25 Mg Tablet, 25 MG PO BID, (Reported) Entered as Reported by: CARITO HARTMANN on 03/21/21928 Cholecalciferol (Vitamin D3) (Vitamin D3) 125 Mcg Tablet, 125 MCG PO DAILY, (Reported) Entered as Reported by: CARITO HARTMANN on 03/21/21928 Clonidine (Clonidine TTS 2 Patch) 1 Each Patch.tdwk, 1 PATCH TD SUN, (Reported) Entered as Reported by: CARITO HARTMANN on 03/21/21928 Cyanocobalamin (Vitamin B-12) (Vitamin B-12) 1,000 Mcg Tab.subl, 1,000 MCG SL DAILY, (Reported) Entered as Reported by: CARITO HARTMANN on 03/21/21928 Doxycycline Hyclate (Doxycycline Hyclate) 100 Mg Capsule, 100 MG PO BID Prescribed by: CHOLO EDGAR on 03/27/21925 Esomeprazole Magnesium (Nexium 24Hr) 20 Mg Tablet.dr, 20 MG PO DAILY, (Reported) Entered as Reported by: CARITO HARTMANN on 03/21/21928 Folic Acid/Vitamin B Comp W-C (Dialyvite 800 Tablet) 0.8 Mg Tablet, 0.8 MG PO HS, (Reported) Entered as Reported by: CARITO HARTMANN on 03/21/21928 Furosemide (Furosemide) 80 Mg Tablet, 80 MG PO DAILY, (Reported) Entered as Reported by: CARITO HARTMANN on 03/21/21928 Hydralazine HCl (Hydralazine HCl) 100 Mg Tablet, 100 MG PO BID, (Reported) Entered as Reported by: CARITO HARTMANN on 03/21/21928 Hydrocodone/Acetaminophen (Hydrocodone-Acetamin 5-325 mg) 5 Mg-325 Mg Tablet, 1 EACH PO Q4-6 HOURS PRN for PAIN Prescribed by: NHUNG LI on 04/15/22 1522 Hydrocodone/Acetaminophen (Hydrocodone-Acetamin 5-325 mg) 5 Mg-325 Mg Tablet, 1 TAB PO Q4H PRN for PAIN-MODERATE (5-7) Prescribed by: ALEC YOUSIF on 07/17/22 1230 Isosorbide Mononitrate (Isosorbide Mononitrate ER) 60 Mg Tab, 60 MG PO DAILY Prescribed by: BERNABE PIKE JR, MD on 03/21/21 1047 Ondansetron (Ondansetron Odt) 4 Mg Tab.rapdis, 4 MG SL Q4H PRN for NAUSEA/VOMITING Prescribed by: CHOLO EDGAR on 03/27/21 0926 Oxycodone HCl/Acetaminophen (Percocet 7.5-325 mg Tablet) 1 Each Tablet, 1 TAB PO Q6H PRN for PAIN-MODERATE Prescribed by: AKASH JONES on 07/26/22 1623 Prednisone (Prednisone) 10 Mg Tab.ds.pk, 10 MG PO DAILY Prescribed by: ALEC YOUSIF on 07/17/22 1230 Review of Systems Constitutional: see HPI Respiratory: no symptoms reported Cardiovascular: no symptoms reported Gastrointestinal: no symptoms reported Genitourinary: no symptoms reported Musculoskeletal: joint pain (Bilateral knee pain and swelling) Skin: no symptoms reported All Other Systems Reviewed Negative Unless Noted: Yes Past Urohrnt-Uokace-Haicdq Hx Patient Social History Tobacco Use?: No Substance use?: No Alcohol Use?: No Pt feels they are or have been: No Immunizations Up To Date Influenza Vaccine Up-to-Date: No; Not Current First/Initial COVID19 Vaccinat: YES Second COVID19 Vaccination Jonathan: YES Third COVID19 Vaccination Date: YES Past Medical History Surgery/Hospitalization HX: DIABETIC, PERITONEAL DIALYSIS Surgeries: Yes (PERITONEAL DIALYSIS PORT IN ABDOMEN) Cardiac, Coronary Stent, Dialysis, Vascular Surgery Respiratory: No Cardiac: Yes Coronary Artery Disease, Heart Attack, Heart Murmur, High Cholesterol, Hypertension Neurological: Yes Neuropathy Genitourinary: Yes Renal Failure, Dialysis Gastrointestinal: Yes Gastroesophageal Reflux Musculoskeletal: No Endocrine: Yes Diabetes, Insulin dep HEENT: No Cancer: Yes Skin Did You Recieve Any Treatments: Yes What Type of Treatment Did You: Surgical Intervention Psychosocial: No Integumentary: No Blood Disorders: No Family Medical History SOCIAL HISTORY: -SMOKED UNTIL HE WAS IN HIS 40'S -DENIES ETOH -DENIES DRUG USE PAST SURGICAL HISTORY: -PERITONIAL DIALYSIS PORT IN ABDOMEN -CARDIAC CATHS WITH STENTS X 3-4 Physical Exam Vital Signs Vital Signs - First Documented 07/26/22 15:30 Temp 36.8 Pulse 68 Resp 18 B/P (MAP) 115/55 (75) Pulse Ox 100 Capillary Refill : Less Than 3 Seconds Height, Weight, BMI Height: '" Weight: lbs. oz. kg; 28.00 BMI Method:Stated General Appearance: WD/WN, mild distress (Secondary to knee pain) HEENT: PERRL/EOMI Neck: normal inspection Respiratory: no respiratory distress, no accessory muscle use Legs: bilateral leg normal inspection, bilateral leg normal range of motion, bilateral leg other (No calf tenderness or lower leg edema noted) Knees: bilateral knee joint effusion, bilateral knee pain, bilateral knee soft tissue tenderness, bilateral knee swelling, bilateral knee other (Painful range of motion however the patient is able to minimally flex and extend.) Neurologic/Psychiatric: alert, normal mood/affect, oriented x 3 Skin: warm/dry, pallor, other (Patient has no erythema overlying the knee joints.) Progress/Results/Core Measures Results/Orders Lab Results Laboratory Tests Test 07/26/22 16:15 Range/Units Uric Acid 6.0 2.6-7.2 MG/DL My Orders Orders - AKASH JONES MD Morphine Injection (Morphine Injection (07/26/22 15:58) Uric Acid (07/26/22 16:02) Colchicine Tablet (Colcrys Tablet) (07/26/22 16:45) Medications Given in ED Current Medications Medications Dose Ordered Sig/Julian Route Start Time Stop Time Status Last Admin Dose Admin Colchicine 0.6 mg ONCE ONCE PO 07/26/22 16:45 07/26/22 16:46 DC 07/26/22 16:54 0.6 MG Vital Signs/I&O 07/26/22 15:30 Temp 36.8 Pulse 68 Resp 18 B/P (MAP) 115/55 (75) Pulse Ox 100 Blood Pressure Mean: 75 Progress Progress Note : Time: 16:07 Progress Note Patient presents with a self-reported history of "gout". Desiring another round of steroids. Will change his hydrocodone to oxycodone. I am drawing a uric acid level as there does not appear to be one in our system. I think the patient would benefit from arthrocentesis to demonstrate gouty crystals however due to his diabetes, chronic kidney disease and overall immunosuppression the risk of attempting knee aspiration outweighs the benefit of going ahead and just treating him. He may be better served having this done as an out patient by Orthopedics. I would not want to risk introduce any joint space infection in this patient. Patient will be treated with 10 mg of morphine IM. We will send a prescription for oxycodone/acetaminophen to [facility]. Have reviewed the literature on colchicine and it will be safe to give him a one time dose of it at 0.6mg. He cannot have any more for 14d. I am hesitant to re-prescribe the prednisone as he just finished a indra 2 days ago. I am going to have him talk to his video game animator on Thursday. Patient is comfortable with plan of care. No concerning findings on physical exam for septic joint. Departure Impression Primary Impression: Gout due to renal impairment, unspecified knee Qualified Codes: M10.369 - Gout due to renal impairment, unspecified knee Disposition: HOME, SELF-CARE Condition: Improved (ERASED) Departure-Patient Inst. Decision time for Depature: 16:16 Referrals: JUANITA CARDOZA APRN (PCP) Primary Care Physician [facility] (Family) Primary Care Physician Patient Instructions: Lifestyle Changes to Manage Gout Add. Discharge Instructions: Watch your protein intake because too much protein and being a renal failure patient will flare your Gout more often. Percocet 7.5mg tablets every 6-8 hours as needed for pain. You can take an extra tylenol with the Percocet. I have given you a one-time dose of colchicine (which treats gout) at 0.6mg. You cannot have any more of this for at least 14d. Do not take any further doses of this from any providers until you talk to your video game animator. Stool softeners daily while taking pain medications. If you develop a fever, with bright red, hot knees, please return to the Emergency Department for re-evaluation. You should call your kidney doctor on Thursday as they can recommend other medications that are safe with your dialysis. Scripts Oxycodone HCl/Acetaminophen (Percocet 7.5-325 mg Tablet) 1 Each Tablet 1 TAB PO Q6H PRN for PAIN-MODERATE MDD 4 TABS, #12 TAB Prov: AKASH JONES MD 07/26/22 Copy Copies To 1: SIMÓN BALLESTEROS KATHRYN M MD Jul 26, 2022 15:59
[2022-07-26] MEDS ORDERED: OXYC1TAB16 PO ×2 (16:22→16:58)
[2022-07-26] MEDS ORDERED: COLCHICINE 0.6 MG (COLCRYS) TABLET PO ONE (16:45)
[2022-07-26] MEDS ORDERED: ONDANSETRON 4 MG (ZOFRAN) ORAL DISSOLVE TAB PO STA (17:01)
[2022-07-26] MEDS ORDERED: ONDANSETRON 4 MG (ZOFRAN) ORAL DISSOLVE TAB ONE (17:03)
[2022-07-26 17:05] VITALS: BP 110/54
== END 2022-07-26 17:06 | disposition home or self-care (01) ==
LOC: EDUNIT# 15:07 → ER 15:12
DX: M10.3 Gout due to renal impairment (principal); I12.9 Hypertensive chronic kidney disease with stage 1 through stage 4 chronic kidney disease, or unspecified chronic kidney disease; E11.22 Type 2 diabetes mellitus with diabetic chronic kidney disease; N18.9 Chronic kidney disease, unspecified; Z99.2 Dependence on renal dialysis; Z79.4 Long term (current) use of insulin
CPT/HCPCS: 36415; 84550; 99284

== ENCOUNTER 2022-12-26 12:46 | Outpatient (RCR) | payer MEDICARE, MEDICAID ==
[~2022-12-26 12:46] MED LIST changes: +OXYC1TAB16 PO
== END 2022-12-26 15:15 | disposition home or self-care (01) ==
PROVIDERS: ATTEND Internal Medicine Critical Care Medicine
DX: J38.3 Other diseases of vocal cords (principal); J38.7 Other diseases of larynx; R05.3 Chronic cough